=== PATIENT | female | born 1945 | race Caucasian/White ===

== ENCOUNTER → 2020-01-29 | Outpatient (CLI) | payer MEDICARE ==
--- NOTE | 2020-01-29 13:23 | MR ---
EXAMINATION TYPE: MR cervical spine wo/w con DATE OF EXAM: 01/29/2020 COMPARISON: Outside imaging of the cervical spine dated 11/27/2019 and thoracic spine dated 11/16/2019 HISTORY: Abnormal outside imaging TECHNIQUE: Multiplanar, multisequence images of the cervical spine were acquired utilizing 9 mL intravenous Gada vist gadolinium contrast. Diffusion weighted imaging was performed. FINDINGS: On outside imaging at the T1 level there is increased T2 signal with expansion and patchy e nhancement. Differential is an was myelitis, myelopathy, demyelination or intramedullary neoplasm con trast enhanced MRI of the cervical spine was recommended with attention to C7-T1. In comparison to th e cervical spine MRI of 11/27/2019 there is a similar area of abnormal signal in the lower cervical an d upper thoracic spinal cord that appears intradural intramedullary measuring 2.5 cm from C7 to the s uperior endplate of T2. This appears as edema as there is a central punctate focus of enhancement myla suring 0.4 x 0.5 x 0.5 cm on axial T1 fat-sat postcontrast image 18 and sagittal T1 postcontrast nonf at sat image 7. This appears stable from the prior exam at the outside institution dated 11/27/2019. T his is centrally located within the spinal cord. This does not appear to be present on the prior MRI of 12/11/2014. There is new grade 1 anterolisthesis of C7 on T1 from the prior 2015. 4 mm that is stable from the ou ide exam of 11/27/2019. Right thyroidectomy is incidentally seen. C2-C3: There is a small central disc herniation without spinal canal stenosis. Right-sided uncoverteb ral hypertrophy creates minimal right neural foraminal narrowing. Left neural foramen is patent and s desiree canal is patent. C3-C4: There is a small central disc herniation and disc osteophyte complex. Although minimal facet a rthropathy and uncovertebral hypertrophy are present no significant neural foraminal narrowing is see n. There is mild spinal canal stenosis as there is loss of the ventral subarachnoid space. C4-C5: There is a posterior projecting disc osteophyte complex and broad-based disc bulge with uncove rtebral hypertrophy and facet arthropathy creating mild right and moderate left neural foraminal narr owing and mild spinal canal stenosis. C5-C6: There is a left paracentral small disc herniation superimposed on a broad-based disc bulge. Th ere is effacement of the ventral subarachnoid space relating to mild spinal canal stenosis. No signif icant neural foraminal narrowing. C6-C7: There is uncovertebral hypertrophy and a broad-based disc bulge resulting in mild bilateral ne ural foraminal narrowing and mild spinal canal stenosis. C7-T1: There is disc uncovering from the known grade 1 anterolisthesis. Mild bilateral neural foramin al narrowing is seen. Moderate spinal canal stenosis is seen as result of a broad-based disc bulge an d ligamentum flavum buckling as well as facet arthropathy. Minimal uncovertebral hypertrophy is also seen.. IMPRESSION: 1. Stable abnormally enhancing 5 mm intradural, intra-axial spinal cord lesion at T1 with surrounding edema from C7-T2. Transverse myelitis or neoplasm/astrocytoma are primary diagnostic considerations given the central involvement. 2. Stable grade 1 anterolisthesis of C7 on T1 and moderate spinal canal stenosis at this level second lona to ligamentum flavum buckling, anterolisthesis and a broad-based disc bulge. 3. Small central disc herniations at C2-C3 and C3-C4 without spinal canal stenosis. Small left parace ntral disc herniation is also seen at C5-C6. 4. Overall moderate degenerative disc disease of the cervical spine resulting in variable degrees of neural foraminal narrowing and spinal canal stenosis as detailed above at each level.
== END | disposition home or self-care (01) ==
LOC: RADMRIMAIN 11:51
PROVIDERS: ATTEND Family Medicine
DX: M48.02 Spinal stenosis, cervical region (principal); M48.03 Spinal stenosis, cervicothoracic region; M50.21 Other cervical disc displacement, high cervical region; M50.23 Other cervical disc displacement, cervicothoracic region; M43.13 Spondylolisthesis, cervicothoracic region; M50.30 Other cervical disc degeneration, unspecified cervical region
CPT/HCPCS: 72156; A9585

== ENCOUNTER → 2020-02-06 | Outpatient (CLI) | payer MEDICARE ==
--- NOTE | 2020-02-09 06:51 | PE ---
EXAMINATION TYPE: PET CT fusion skull to thigh DATE OF EXAM: 02/06/2020 COMPARISON: MRI cervical spine January 29, 2020. HISTORY: History of breast cancer 2010 with abnormal MRI, new mass and swelling. TECHNIQUE: Following the intravenous administration of 11.91 mCi of F-18 FDG, whole body images are performed from the skull base to the midthigh. Images are reviewed on the computer in the coronal, a xial, and sagittal planes. Reconstructed rotating images are created on independent workstation and reviewed on the computer. A noncontrast CT is performed in conjunction with the PET scan. SCAN: Initial Scan FINDINGS: SKULL BASE AND NECK: Mild hypermetabolic uptake right anterior masseter muscle axial image 36 is pre sumed postinflammatory. No additional suspicious hypermetabolic uptake with particular attention to the lower cervical spinal canal. CHEST, MEDIASTINUM, AND HILAR REGION: No areas of suspicious hypermetabolic uptake. ABDOMEN AND PELVIS: No areas of suspicious hypermetabolic uptake. Normal excretion and bladder. OSSEOUS STRUCTURES: No areas of suspicious hypermetabolic uptake. OTHER CT: Moderate calcified plaque bilateral carotid bulb level. Right thyroid lobe not visualized p resumed surgically absent. Cardiomegaly is present. Surgical changes to the lateral aspect right breast are noted. There is mode rate to severe coronary artery calcification which is noted marker for underlying coronary artery dis ease. Metallic hardware from bilateral hip arthroplasty causes streak artifact limiting evaluation of pelvi c structures. Uterus may be surgically absent. IMPRESSION: No suspicious hypermetabolic uptake to suggest recurrent metastatic disease. PET may be i nsensitive to subcentimeter spinal cord lesions. Appropriate follow-up for this lesion is advised per neurosurgical and/or other consultations.
== END | disposition home or self-care (01) ==
LOC: RADPETMAIN 11:57
PROVIDERS: ATTEND Family Medicine
DX: G95.9 Disease of spinal cord, unspecified (principal)
CPT/HCPCS: 78815; A9552

== ENCOUNTER → 2020-04-15 | Outpatient (CLI) | payer MEDICARE ==
[2020-04-15 10:20] LABS: Appearance,Urine Clear (Clear); Basophils % (A) 0 %; Bilirubin,Urine Negative (Negative); Blood,Urine Negative (Negative); Color,Urine Light Yellow; Eosinophils # (A) 0.2 k/uL (0-0.7); Eosinophils % (A) 3 %; Glucose,Urine (UA) Negative (Negative); HCT 41.8 % (34.0-46.0); HGB 13.9 gm/dL (11.4-16.0); Ketones,Urine Negative (Negative); Leukocyte Esterase,Urine Negative (Negative); Lymphocytes % (A) 22 %; MCH 29.2 pg (25.0-35.0); MCHC 33.3 g/dL (31.0-37.0); MCV 87.7 fL (80.0-100.0); Mean Platelet Volume 8.8; Monocytes # (A) 0.5 k/uL (0-1.0); Monocytes % (A) 6 %; Neutrophils % (A) 66 %; Nitrite,Urine Negative (Negative); PH, Urine 7.5 (5.0-8.0); Platelet Count 295 k/uL (150-450); Protein,Urine Negative (Negative); RBC 4.77 m/uL (3.80-5.40); RDW 13.5 % (11.5-15.5); Specific Gravity,Urine 1.008 (1.001-1.035); Urobilinogen,Urine <2.0 mg/dL (<2.0); WBC 9.1 k/uL (3.8-10.6)
[2020-04-15 10:31] LABS: Calcium 9.2 mg/dL (8.4-10.2); Potassium 3.9 mmol/L (3.5-5.1)
[2020-04-15 10:42] LABS: INR 0.9 (<1.2); Partial Thromboplastin Time 24.8 sec (22.0-30.0); Prothrombin Time 9.6 sec (9.0-12.0)
--- NOTE | 2020-04-15 11:27 | XR ---
EXAMINATION TYPE: XR chest 2V DATE OF EXAM: 04/15/2020 COMPARISON: NONE HISTORY: Z01.818, presurgery TECHNIQUE: Frontal and lateral views of the chest are obtained. FINDINGS: There is no focal air space opacity, pleural effusion, or pneumothorax seen. The aorta is dense. The cardiac silhouette size is within normal limits. The osseous structures are intact, the re may be a slight spinal curvature. IMPRESSION: No acute cardiopulmonary process.
== END | disposition home or self-care (01) ==
LOC: LABPAT 09:23
PROVIDERS: ATTEND Orthopaedic Surgery Orthopaedic Surgery of the Spine
DX: Z01.818 Encounter for other preprocedural examination (principal); U07.1 COVID-19; M48.00 Spinal stenosis, site unspecified
CPT/HCPCS: 80048; 85025; 85610; 85730; 81003; 71046; 36415; U0003

== ENCOUNTER 2020-04-18 11:06 | Day surgery (SDC) | payer MEDICARE ==
[2020-04-15 09:10] VITALS: BMI 34.1
[~2020-04-18 11:06] MED LIST: DEXAMETHASONE SOD PHOSPHATE 10 MG/ML 1 ML VIAL IV ONE; HYDROmorphone 0.5 MG/0.5 ML SYRINGE IVP PRN; ONDANSETRON 4 MG/2 ML VIAL IVP ONE; SODIUM CHLORIDE 0.9% IRRIGATIO 1,000 ML IRRIGATION ONE
[2020-04-18] MEDS: LACTATED RINGERS 1,000 ML IV SCH (11:55)
[2020-04-18] MEDS ORDERED: LIDOCAINE 1% (10MG/ML) FOR IV START INTRADERMA ONE (11:55)
[2020-04-18] MEDS ORDERED: PROPOFOL 10 MG/ML 20 ML VIAL IV ONE (12:41)
[2020-04-18] MEDS ORDERED: fentaNYL (PF) 50 MCG/ML 2 ML AMP ONE (12:41)
[2020-04-18] MEDS ORDERED: MIDAZOLAM 2 MG/2 ML VIAL ONE (12:41)
[2020-04-18] MEDS ORDERED: ROCURONIUM BROMIDE 10 MG/ML 5 ML VIAL IV ONE (12:41)
[2020-04-18] MEDS ORDERED: SUCCINYLCHOLINE CHLORIDE 100 MG/5 ML SYR IV ONE (12:41)
[2020-04-18] MEDS ORDERED: DEXAMETHASONE SOD PHOS (MDV) 100 MG/10 ML VIAL ONE (12:41)
[2020-04-18] MEDS ORDERED: LIDOCAINE 1% INJ 10MG/ML (20 ML MDV) ONE (12:41)
[2020-04-18] MEDS ORDERED: LIDOCAINE 2%-EPI 1:100,000 20 ML VIAL SQ ONE ×3 (13:19→14:36)
--- NOTE | 2020-04-18 13:53 | XR ---
EXAMINATION TYPE: XR cervical spine 1V DATE OF EXAM: 04/18/2020 COMPARISON: NONE HISTORY: 74-year-old female needle placement TECHNIQUE: Single crosstable lateral intraoperative view FINDINGS: Patient's neck is extended. A surgical needle is present along the anterior C6-C7 disc interspace. Mo derate spondylotic change mid to lower cervical spine. Patient is intubated. IMPRESSION: Surgical needle at the anterior C6-C7 disc interspace.
[2020-04-18] MEDS ORDERED: GELATIN SPONGE,ABSORB (LARGE) 1 EACH SPONGE MISCELLANE ONE (14:05)
[2020-04-18] MEDS ORDERED: THROMBIN (BOVINE) 5,000 UNIT VIAL TOPICAL ONE (14:06)
[2020-04-18] MEDS ORDERED: LACTATED RINGERS 1,000 ML IV ONE (14:31)
[2020-04-18] MEDS ORDERED: HYDROmorphone 1 MG/ML 1 ML SYRINGE IVP PRN (14:46)
[2020-04-18] MEDS ORDERED: HYDROmorphone 0.5 MG/0.5 ML SYRINGE IVP PRN (14:46)
[2020-04-18] MEDS ORDERED: BENZOCAINE/MENTHOL LOZENG 1 EACH LOZENGE MUCOUS MEM PRN (14:46)
[2020-04-18] MEDS ORDERED: ONDANSETRON 4 MG/2 ML VIAL IVP PRN (14:47)
[2020-04-18] MEDS ORDERED: HYDROcodone/APAP 5-325MG 1 EACH TAB PO PRN (14:47)
[2020-04-18] MEDS ORDERED: ACETAMINOPHEN TAB 325 MG TAB PO PRN (14:47)
--- NOTE | 2020-04-18 14:54 | P.OP ---
Date of Procedure: 04/18/20 Preoperative Diagnosis: Cervical myelopathy, cervical myelomalacia, severe cervical stenosis C6 7 C7-T1, upper extremity weakness, lower extremity weakness, neck pain, upper extremity radiculopathy, degenerative disc disease Postoperative Diagnosis: Same Anesthesia: GETA Pathology: none sent Condition: stable Disposition: PACU Description of Procedure: BRIEF OPERATIVE NOTE Preoperative Diagnosis:Cervical myelopathy, cervical myelomalacia, severe cervical stenosis C6 7 C7-T1, upper extremity weakness, lower extremity weakness, neck pain, upper extremity radiculopathy, degenerative disc disease Postoperative Diagnosis:Cervical myelopathy, cervical myelomalacia, severe cervical stenosis C6 7 C7-T1, upper extremity weakness, lower extremity weakness , neck pain, upper extremity radiculopathy, degenerative disc disease Procedure: Anterior cervical decompression with discectomy and fusion C6 7 C7-T1 Placement of interbody graftC6 7 C7-T1 Application of anterior cervical plateC6 7 and T1 Surgeon: Dr. Roberto Appliance Sales Associate: Jona Ac is present throughout the entire the case persistence during positioning, dissection, exposure, visualization, and all crucial elements of the case as well as closure. Anesthesia: General anesthesia per Dr. Giles Estimated blood loss:Approximately 50 mL Complications: None apparent Components implanted:K2M [place] anterior cervical plate system with Vikos interbody allograft bone graft and 1 mL of DBX bone putty Disposition: To recovery room in good stable condition. OPERATIVE INDICATIONS The patient has had long-standing issues in their neck and upper extremities. she's been having worsening over the past couple of months. She was found have significant cervical myelopathy with severe stenosis at her cervical spine and myelomalacia within her cervical spine the correlated with her symptoms. Some of her treatment had to be delayed due to the current pandemic, but once we are able to proceed with surgical intervention we felt that she had significant time sensitive issues that should be addressed sooner rather than later. The patient has been through conservative treatment. We discussed various treatment options including surgery, and the patient wishes to proceed with surgery We discussed the risk, patient's alternatives and benefits of surgery including but not limited to, risk of bleeding risk of infection, risk of need for further surgery, risk of decreased, loss of motion, muscle function, malunion nonunion, hardware failure, nerve damage, paralysis, heart attack, and .We also discussed the fact that there is a current pandemic and there was no way to fully guarantee complete non-exposure and the patient understood. OPERATIVE SUMMARY After discussing all the risks, patient alternatives and benefits at length, the patient elected to proceed with surgical intervention, signed informed consent, and presented for their procedure. The patient was seen and examined in the preoperative holding area and the surgical site was marked. The patient was given antibiotics and brought to the operating room. The patient was positioned on the operating room table in a supine position being careful to pad any bony prominences and pressure points. The patient was sedated and intubated by anesthesia in standard fashion. Once the airway and C- spine were stabilized the patient's arms were padded and tucked at her side, with her shoulders gently taped. The head was placed in a donut pad with the neck in good neutral alignment and position. We were careful to maintain the patient's cervical spine and good neutral alignment and position throughout. The patient was prepped and draped in a normal standard fashion. An appropriate timeout and keystone protocol performed. We were able to proceed with the surgery. The local wound area was infiltrated with local anesthetic At the level of her prior incision from her thyroidectomy on the right side over C7.. An incision was made transversely approximately 2-1/2 cm over the appropriate levels At C7. Dissection was taken down subcutaneously to the level of the platysma which was split in line with its fibers. Dissection was taken with a carotid approach, with the trachea and esophagus medial and the carotid sheath laterally. We dissected down to the anterior surface of the vertebral bodies. Intraoperative x-ray was taken which showed a marker at the appropriate level At C6 7. the large osteophytes at C6 7 which were taken down with a rongeur. With the appropriate level positively confirmed, we were able to proceed with discectomy at the appropriate levels Starting at C7-T1 and then working to C6 7. All of the operative levels were exposed appropriately. The patient had all their twitches back, and there was no evidence of recurrent laryngeal issue. The wound was copiously irrigated and suctioned dry as had been done periodically throughout the case. At the appropriate level/levels,starting at C7-T1 and then moving to C6 7 I established an annulotomy with an 11 blade scalpel. A discectomy was performed with a combination of pituitary rongeurs, curettes, a high-speed bur, and Kerrison rongeurs. The posterior longitudinal ligament was taken down as were any posterior osteophytes. note was made of the listhesis at C7-T1 and evidence of severe central and bilateral foraminal stenosis at both levels. I was able to take down the disc and the posterior longitudinal ligament and open up the neural foramen bilaterally. This gave good central and bilateral foraminal decompression. There is no evidence of any dural tear or leak. The endplates were prepared with a high-speed bur. With the endplates in good parallel position, I was able to size for the appropriate size interbody graft. The wound was irrigated and suctioned dry the graft was prepared and malleted into position. It had good alignment and position with the anterior surface flush with the anterior surface of the vertebral bodies. This was done similarly the appropriate levels. With the grafts intact, I was able to measure and contour and appropriate sized plate. The plate was positioned at the midline over the appropriate levels From a C6 to T1. Screw holes were established with a hand drill and drill guide. Screws were placed in good alignment and position with excellent bony purchase. They were seated under the locking device. I was unable to get some reduction of the listhesis at C7-T1 to the plate. The construct was checked and found to be stable. Intraoperative x-ray was taken which showed good alignment and position of the implants at the appropriate levels From C6 to T1. There was no evidence of any dural tear or leak. Good hemostasis was maintained. The wound was copiously irrigated and suctioned dry as had been done periodically throughout the case. The platysma was closed with absorbable suture. The subcutaneous tissue was closed. The subcuticular tissue was closed with absorbable suture. The wound was cleaned and dried and dressed appropriately. A soft cervical collar was placed appropriately. The patient was woken up by anesthesia, extubated, transferred back gently to their hospital bed and brought to the recovery room in good stable condition. The patient will be admitted to the hospital for appropriate postoperative care, medical management and monitoring. We will continue to follow them closely about the postoperative course.
--- NOTE | 2020-04-18 14:56 | XR ---
EXAMINATION TYPE: XR cervical spine 1V DATE OF EXAM: 04/18/2020 COMPARISON: NONE HISTORY: Postop TECHNIQUE: One view is submitted. FINDINGS: Postsurgical change lower cervical spine likely partially included on exam. Suggestion of an endotrac heal tube. Severe degenerative disc disease at C4-5 with posterior spondylosis. Multilevel facet arth ropathy noted. IMPRESSION: 1. Postoperative change
[2020-04-18] MEDS ORDERED: CHOLECALCIFEROL 1,000 UNIT TAB PO SCH (15:00)
[2020-04-18] MEDS ORDERED: HYDROmorphone 0.5 MG/0.5 ML SYRINGE IVP ONE ×2 (15:34→15:40)
[2020-04-18] MEDS: SODIUM CHLORIDE 0.9% 1,000 ML IV SCH (18:06)
[2020-04-18] MEDS: HYDROcodone/APAP 7.5-325MG 1 EACH TAB PO PRN (20:44)
[2020-04-19] MEDS: HYDROcodone/APAP 7.5-325MG 1 EACH TAB PO PRN (04:23)
[2020-04-19] MEDS: LACTATED RINGERS 1,000 ML IV SCH (04:31)
[2020-04-19] MEDS: SODIUM CHLORIDE 0.9% 1,000 ML IV SCH (04:31)
[2020-04-19] MEDS ORDERED: NON FORMULARY DRUG (Potassium Gluconate [Potassium Gluconate] 99 MG) PO SCH (09:00)
[2020-04-19] MEDS ORDERED: PANTOPRAZOLE 40 MG TABLET PO SCH (09:00)
[2020-04-19] MEDS ORDERED: ESCITALOPRAM 5 MG TAB PO SCH (09:00)
[2020-04-19] MEDS ORDERED: TRIAMTERENE-HCTZ 75-50MG 1 EACH TAB PO SCH (09:00)
[2020-04-19] MEDS ORDERED: MAGNESIUM OXIDE 400 MG TAB PO SCH (09:00)
[2020-04-19] MEDS ORDERED: ASPIRIN 81 MG PO SCH (09:00)
[2020-04-19] MEDS ORDERED: ATENOLOL 50 MG TAB PO SCH (09:00)
[2020-04-19] MEDS ORDERED: SENNOSIDES-DOCUSATE SODIUM 1 EACH TAB PO SCH ×2 (09:00)
--- NOTE | 2020-04-19 10:50 | P.DS ---
Providers Date of admission: 04/18/2020 Expected date of discharge: 04/19/20 Attending physician: Chaim Roberto Primary care physician: Melvina Phillips - Discharge Diagnosis(es) (1) Cervical myelopathy Current Visit: Yes Status: Acute (2) Cervical cord myelomalacia Current Visit: Yes Status: Acute (3) Cervical stenosis of spinal canal Current Visit: Yes Status: Acute (4) Degenerative cervical disc Current Visit: Yes Status: Acute (5) Upper extremity weakness Current Visit: Yes Status: Acute (6) Radiculopathy affecting upper extremity Current Visit: Yes Status: Acute (7) Lower extremity weakness Current Visit: Yes Status: Acute (8) Cervicalgia Current Visit: Yes Status: Acute (9) Hypertension Current Visit: Yes Status: Acute (10) History of heart disease Current Visit: Yes Status: Acute (11) History of breast cancer Current Visit: Yes Status: Acute (12) Unsteady gait Current Visit: Yes Status: Acute Hospital Course: This is a pleasant 74-year-old female who presented with cervical myelopathy, cervical myelomalacia, severe cervical stenosis at C6-7 and C7-T1, upper extremity weakness, lower extremity weakness, cervicalgia, cervical degenerative disc disease, and upper extremity radiculopathy who failed outpatient conservative therapy. She was admitted for a C6-7 and C7-T1 anterior cervical decompression and fusion. The patient tolerated the procedure well and did well postoperatively. She has good range of motion of bilateral upper extremities. She feels her upper extremity radiculopathy symptoms and lower extremity symptoms have improved. She does continue to have some pain that radiates down the right tricep to the elbow. She has some soreness with swallowing but is eating and drinking without difficulty. She is very happy with her progress postoperatively. She feels she is ready for discharge home today. Condition on day of discharge stable. Patient will be discharged home. Patient was cleared preoperatively for surgery by Dr. Phillips. Patient currently denies any nausea, vomiting, fever, or chills. Patient is eating and voiding freely without difficulty. Patient may shower Optifoam dressing intact. Patient may remove Optifoam dressing in 3 days and shower without a dressing at that time. Patient should refrain from driving until at least after their first follow-up appointment in the office. Patient should avoid excessive neck flexion, extension, rotation, and lateral sidebending; no overhead lifting; no lifting greater than 10 pounds. MAPS has been reviewed today, 04/19/2020, with an Overall Overdose Risk Score of 70. An "Opiod Start Talking" Form has been signed by the patient and myself in place in the patient's chart. A prescription has been written for [place] 7.5 mg/325 mg take 1 tab every 6 hours as needed for pain, dispensed #28. Patient may resume other previous he prescribed home medications while avoiding anti-inflammatories over the next 6 weeks postoperatively. Patient's past medical history includes hypertension, heart disease, unsteady gait, and breast cancer. Physical Exam on day of discharge: Patient is awake, alert, and oriented 3 Vital signs stable Good chest excursion with deep inspiration and expiration Abdomen soft nontender No signs or symptoms of DVT; no calf pain Full range of motion of the cervical spine with adequate flexion, extension, and bilateral rotation Clinical Molecular Geneticist strength, thumb strength, interosseous strength, biceps strength, triceps strength, and shoulder strength positive sustained bilaterally Soft cervical collar intact Incision is clean, dry, and intact; no erythema, purulence, or signs of infection Optifoam dressing and non-stick Telfa intact Procedures: C6-7 and C7-T1 anterior cervical decompression and fusion Patient Condition at Discharge: Stable Plan - Discharge Summary Discharge Rx Participant: Yes New Discharge Prescriptions: New HYDROcodone/APAP 7.5-325MG [[place] 7.5-325] 1 each PO Q6HR PRN #28 tab PRN Reason: Pain Continue HYDROcodone/APAP 7.5-325MG [[place] 7.5-325] 1 - 2 tab PO Q6HR PRN PRN Reason: Pain rOPINIRole HCL [Requip] 0.5 mg PO HS Magnesium Oxide [Mag-Ox] 1,000 mg PO DAILY Escitalopram [Lexapro] 5 mg PO DAILY Atenolol [Tenormin] 50 mg PO DAILY Aspirin 81 mg PO DAILY Triamterene/Hydrochlorothiazid [Triamterene-Hctz 75-50 mg Tab] 1 each PO DAILY Potassium Gluconate 99 mg PO DAILY Omeprazole 20 mg PO DAILY Cholecalciferol (Vitamin D3) [Vitamin D3] 1,000 unit PO Q48H Discharge Medication List Aspirin 81 mg PO DAILY 04/15/20 [History] Atenolol [Tenormin] 50 mg PO DAILY 04/15/20 [History] Escitalopram [Lexapro] 5 mg PO DAILY 04/15/20 [History] HYDROcodone/APAP 7.5-325MG [[place] 7.5-325] 1 - 2 tab PO Q6HR PRN 04/15/20 [History] Magnesium Oxide [Mag-Ox] 1,000 mg PO DAILY 04/15/20 [History] Omeprazole 20 mg PO DAILY 04/15/20 [History] Potassium Gluconate 99 mg PO DAILY 04/15/20 [History] Triamterene/Hydrochlorothiazid [Triamterene-Hctz 75-50 mg Tab] 1 each PO DAILY 04/15/20 [History] rOPINIRole HCL [Requip] 0.5 mg PO HS 04/15/20 [History] Cholecalciferol (Vitamin D3) [Vitamin D3] 1,000 unit PO Q48H 04/18/20 [History] HYDROcodone/APAP 7.5-325MG [[place] 7.5-325] 1 each PO Q6HR PRN #28 tab 04/19/20 [Rx] Follow up Appointment(s)/Referral(s): Chaim Roberto, [Doctor of Osteopathic Medicine] - 2 Weeks (Patient may follow-up with Jona Traore PA-C or Dr. Kevin Roberto at [facility] in 2-3 weeks following discharge. ) Activity/Diet/Wound Care/Special Instructions: 1. Patient may shower with Optifoam dressing intact. 2. Patient may remove Optifoam dressing in 3 days and shower without a dressing at that time. 3. Patient may wear soft cervical collar for comfort support as needed 4. Patient should refrain from driving until at least after their first follow- up appointment in the office. 5. Patient should avoid excessive cervical flexion, extension, rotation, and sidebending; avoid overhead lifting; no lifting greater than 10 pounds 6. Take medications as prescribed 7. Do not soak in tub Discharge Disposition: HOME SELF-CARE
[2020-04-19 11:44] VITALS: BP 156/84; PULSE 67; RESP 18; TEMP 98
== END 2020-04-19 12:16 | disposition home or self-care (01) ==
LOC: OR 11:06 → 5NMEDONC 15:26 → OR 04-19 12:16
PROVIDERS: ATTEND Orthopaedic Surgery Orthopaedic Surgery of the Spine
DX: M48.02 Spinal stenosis, cervical region (principal); M50.023 Cervical disc disorder at C6-C7 level with myelopathy; M50.123 Cervical disc disorder at C6-C7 level with radiculopathy; G95.89 Other specified diseases of spinal cord; M43.12 Spondylolisthesis, cervical region; M47.896 Other spondylosis, lumbar region; M51.17 Intervertebral disc disorders with radiculopathy, lumbosacral region; I11.9 Hypertensive heart disease without heart failure; R26.81 Unsteadiness on feet; R29.6 Repeated falls; K21.9 Gastro-esophageal reflux disease without esophagitis; E89.0 Postprocedural hypothyroidism; Z88.6 Allergy status to analgesic agent; Z88.8 Allergy status to other drugs, medicaments and biological substances; Z91.09 Other allergy status, other than to drugs and biological substances; Z79.899 Other long term (current) drug therapy; Z79.82 Long term (current) use of aspirin; Z79.891 Long term (current) use of opiate analgesic; Z85.3 Personal history of malignant neoplasm of breast; Z96.643 Presence of artificial hip joint, bilateral; Z90.710 Acquired absence of both cervix and uterus; Z90.89 Acquired absence of other organs; Z98.890 Other specified postprocedural states; Z87.891 Personal history of nicotine dependence; Z83.3 Family history of diabetes mellitus; Z82.49 Family history of ischemic heart disease and other diseases of the circulatory system
CPT/HCPCS: 22551; 20930; 22552; 22845; 86900; 86901; 86850; 72020; C1713 ×2; C1762; J2250; J0690 ×2; J2405; J2001; J3010; J1100; J0330; J2704; J1170

== ENCOUNTER → 2020-11-01 | Outpatient (CLI) | payer MEDICARE | END | disposition home or self-care (01) | LOC: LABPAT 12:42 | PROVIDERS: ATTEND Surgery | DX: Z01.818 Encounter for other preprocedural examination (principal); Z20.828 Contact with and (suspected) exposure to other viral communicable diseases ==

== ENCOUNTER 2024-02-04 06:43 | Day surgery (SDC) | payer MEDICARE ==
[~2024-02-04 06:43] MED LIST changes: +ALPRAZolam 0.25 MG TAB PO PRN; +ALPRAZolam 0.5 MG TAB PO PRN; -DEXAMETHASONE SOD PHOSPHATE 10 MG/ML 1 ML VIAL IV ONE; -HYDROmorphone 0.5 MG/0.5 ML SYRINGE IVP PRN; +NITROGLYCERIN SL TABS 0.4 MG TAB SUBLINGUAL PRN; -ONDANSETRON 4 MG/2 ML VIAL IVP ONE; -SODIUM CHLORIDE 0.9% IRRIGATIO 1,000 ML IRRIGATION ONE
[2024-02-04] MEDS: SODIUM CHLORIDE 0.9% 1,000 ML in EMPTY BAG 1 BAG IV SCH (07:25)
[2024-02-04 07:50] VITALS: TEMP 97.9
[2024-02-04] MEDS ORDERED: VERAPAMIL 2.5 MG/ML 2 ML AMP ONE (08:17)
[2024-02-04] MEDS ORDERED: HEPARIN SODIUM 1,000 UN/ML (10ML VL) ONE (08:17)
[2024-02-04] MEDS ORDERED: LIDOCAINE 1% INJ 10MG/ML (20 ML MDV) ONE (08:18)
[2024-02-04] MEDS: MIDAZOLAM 2 MG/2 ML VIAL IVP ONE ×2 (08:32→08:44)
[2024-02-04] MEDS: LIDOCAINE 1% INJ 10MG/ML (20 ML MDV) SQ ONE (08:37)
[2024-02-04] MEDS: VERAPAMIL SYRINGE (5 MG/10 ML) INTRAARTER ONE (08:38)
[2024-02-04] MEDS: HEPARIN SODIUM 1,000 UN/ML (10ML VL) IVP ONE (08:40)
[2024-02-04] MEDS: IOPAMIDOL-370 100ML BTL INTRATHECA ONE (08:50)
[2024-02-04] MEDS ORDERED: ACETAMINOPHEN TAB 325 MG TAB ONE (09:06)
[2024-02-04] MEDS ORDERED: ACETAMINOPHEN TAB 325 MG TAB PO PRN (09:11)
[2024-02-04 13:42] VITALS: BP 131/58; PULSE 62; RESP 16
--- NOTE | 2024-02-18 14:44 | PCN ---
Date of Procedure: 02/04/24 Operative Findings: CARDIAC CATHETERIZATION PERFORMING PHYSICIAN: Dudley Martinez MD, RPVI PROCEDURE PERFORMED: 1. Selective right and left coronary angiogram 2. Ultrasound-guided access of the right radial artery INDICATION: Symptomatic 75-year-old female patient who underwent stress test and that came in to be abnormal showing ischemia COMPLICATION: None APPROACH: Right radial artery LEVEL OF SEDATION: Moderate with a sedation length of 12 minutes PROCEDURE DESCRIPTION: After obtaining an informed consent, the patient was brought to cardiac slab puller. Local anesthesia was performed using lidocaine subcutaneously. The right radial artery was cannulated using Seldinger technique, the guidewire passed easily, following that we advanced a 5-[place] sheath dilator assembly, the wire and dilator were removed and sheath was flushed. Following that, 2 mg of verapamil along with 5000 unit heparin were given. Selective right and left coronary angiogram using a 6-[place] JR4 and JL 3.5 catheters. The procedure was completed there was no complication. SELECTIVE CORONARY ANGIOGRAM: The right coronary artery: Large-caliber vessel and a dominant vessel with mild disease only Left main: Calcified with mild disease only The left circumflex: Large-caliber vessel and codominant vessel with mild disease only. Gives rise into the first and second obtuse marginal branches and they are normal. Distally gives a PDA which also appears to be normal The left anterior descending artery: Large-caliber vessel with mild disease only. Gives rise into the first and second diagonal branches and they appear to be normal CONCLUSION: 1. Mild nonobstructive coronary artery disease POSTPROCEDURE MANAGEMENT: Medical treatment MTDD
== END 2024-02-04 14:00 | disposition home or self-care (01) ==
LOC: CATHCVL 06:43
PROVIDERS: ATTEND Internal Medicine Interventional Cardiology
DX: I73.9 Peripheral vascular disease, unspecified (principal); I10 Essential (primary) hypertension; E78.5 Hyperlipidemia, unspecified; F17.210 Nicotine dependence, cigarettes, uncomplicated; Z88.5 Allergy status to narcotic agent; Z79.899 Other long term (current) drug therapy
CPT/HCPCS: 93454; 76937; C1769; C1894; J2250; J2001; J1644; Q9967

== ENCOUNTER 2024-09-26 09:39 | Inpatient (IN) | payer MEDICARE ==
--- NOTE | 2024-09-26 10:45 | ED ---
Nausea/Vomiting/Diarrhea HPI - General Chief complaint: Nausea/Vomiting/Diarrhea Stated complaint: N/V/D Time Seen by Provider: 09/26/24 10:43 Source: patient, RN notes reviewed Mode of arrival: EMS Limitations: no limitations - History of Present Illness Initial comments: 79 year old female presenting to the ER with a chief complaint of vomiting and diarrhea. Daughter aiding in HPI. Patient states she has been having vomiting, diarrhea, fevers and abdominal pain for the past 24 hours. Daughter reports a fever of 102 yesterday for which she gave Tylenol. Last dose of Tylenol was around 7:15 AM. Patient states he has a sharp right sided abdominal pain. She does report a history of a cholecystectomy. Daughter reports patient also has had a recent cough and complaints of shortness of breath. Patient denies any chest pain or current shortness of breath. - Related Data Home Medications Medication Instructions Recorded Confirmed Aspirin 81 mg PO DAILY 04/15/20 09/26/24 Triamterene/Hydrochlorothiazid 1 tab PO DAILY 04/15/20 09/26/24 [Triamterene-Hctz 75-50 mg Tab] Exemestane [Aromasin] 25 mg PO DAILY 01/29/24 09/26/24 Furosemide [Lasix] 40 mg PO DAILY PRN 01/29/24 09/26/24 HYDROcodone/APAP 10-325MG [[place] 1 tab PO Q4H PRN 01/29/24 09/26/24 10-325] Lactulose [Constulose] 10 - 20 gm PO Q6H PRN 01/29/24 09/26/24 allopurinoL 100 mg PO DAILY 01/29/24 09/26/24 methocarbamoL 750 mg PO Q6H PRN 01/29/24 09/26/24 Cholecalciferol [Vitamin D3 (25 25 mcg PO DAILY 09/26/24 09/26/24 Mcg = 1000 Iu)] Escitalopram [Lexapro] 10 mg PO DAILY 09/26/24 09/26/24 Furosemide [Lasix] 40 mg PO DAILY 09/26/24 09/26/24 Letrozole 2.5 mg PO DAILY 09/26/24 09/26/24 Magnesium 250 mg PO DAILY 09/26/24 09/26/24 Potassium Chloride ER [K-Dur 20] 20 meq PO DAILY 09/26/24 09/26/24 Allergies Allergy/AdvReac Type Severity Reaction Status Date / Time celecoxib [From Celebrex] Allergy Abdominal Verified 09/26/24 13:28 Pain ibuprofen [From Motrin] Allergy Abdominal Verified 09/26/24 13:28 Pain metoprolol Allergy Rash/Hives Verified 09/26/24 13:28 quinapril [From Accupril] Allergy Rash/Hives Verified 09/26/24 13:28 Kvspotr-BNP-DpM Reductase Allergy Abdominal Verified 09/26/24 13:28 Inhibitor Pain [Rvnqisr-Uqq-Ecu Reductase Inhibitor] adhesive tape AdvReac Rash/Hives Verified 09/26/24 13:28 Review of Systems ROS Statement: Those systems with pertinent positive or pertinent negative responses have been documented in the HPI. ROS Other: All systems not noted in ROS Statement are negative. Past Medical History Past Medical History: Cancer, GERD/Reflux, Hyperlipidemia, Hypertension, Osteoarthritis (OA) Additional Past Medical History / Comment(s): fluid retention ankles & feet, rheumatic fever/rheumatic heart disease x3 as a child, valve disease/heart murmur, hx. R breast cancer 2011-radiation & surgery, L breast cancer 2021/lumpectomy, pain & frequent numbness from small of back down legs-uses walker History of Any Multi-Drug Resistant Organisms: None Reported Past Surgical History: Breast Surgery, Hysterectomy, Joint Replacement, Orthopedic Surgery Additional Past Surgical History / Comment(s): lumpectomy right breast x2, L breast lumpectomy, surg. left knee to remove cartilage, partial thyroidectomy, TOTAL HIP REPLACEMENT LEFT AND RIGHT SIDE, bilateral cataract removal/lens impla nts. Past Anesthesia/Blood Transfusion Reactions: No Reported Reaction Past Psychological History: Anxiety, Depression Smoking Status: Former smoker Past Alcohol Use History: None Reported Past Drug Use History: None Reported - Past Family History Mother Son(s) Family Medical History: Cancer Daughter(s) Family Medical History: Cancer, Deep Vein Thrombosis (DVT) Additional Family Medical History / Comment(s): blood clot in arm, leukemia General Exam Limitations: no limitations General appearance: alert, in no apparent distress Respiratory exam: Present: normal lung sounds bilaterally. Absent: respiratory distress, wheezes, rales, rhonchi, stridor Cardiovascular Exam: Present: regular rate, normal rhythm, normal heart sounds. Absent: systolic murmur, diastolic murmur, rubs, gallop, clicks GI/Abdominal exam: Present: soft, tenderness (Right sided, LUQ), normal bowel sounds Back exam: Present: normal inspection (no CVA tenderness bilaterally) Neurological exam: Present: alert, oriented X3, CN II-XII intact Skin exam: Present: warm, dry, intact, normal color. Absent: rash Course Vital Signs 09/26/24 09/26/24 09:59 12:58 Temperature 99.6 F 98.9 F Pulse Rate 84 83 Respiratory 20 18 Rate Blood Pressure 115/68 93/51 O2 Sat by Pulse 98 94 L Oximetry - Reevaluation(s) Reevaluation #1: 09/26/24 14:17 Case discussed with for admission. Medical Decision Making - Medical Decision Making Was pt. sent in by a medical professional or institution (, PA, VERIFICATION ENGINEER, urgent care, hospital, or residential...) When possible be specific @ -No Did you speak to anyone other than the patient for history (EMS, parent, family, police, friend...)? What history was obtained from this source @ -Daughter, at bedside, aiding in HPI and past medical history. Did you review nursing and triage notes (agree or disagree)? Why? @ -I reviewed and agree with nursing and triage notes Were old charts reviewed (outside hosp., previous admission, EMS record, old EKG, old radiological studies, urgent care reports/EKG's, residential records)? Report findings @ -No old charts were reviewed Differential Diagnosis (chest pain, altered mental status, abdominal pain women, abdominal pain men, vaginal bleeding, weakness, fever, dyspnea, syncope, headache, dizziness, GI bleed, back pain, seizure, CVA, palpatations, mental health, musculoskeletal)? @ -Differential Fever:Pneumonia, viral URI, endocarditis, myocarditis, pericarditis, otitis, sinusitis, peritonsillar Abscess, retropharyngeal Abscess, epiglottitis, peritonitis, appendicitis, [place] cystitis, diverticulitis, hepat itis, colitis, UTI, PID, TOA, pyelonephritis, prostatitis, epididymitis, meningitis, encephalitis, pulmonary embolism, CVA, thyroid storm, pancreatitis, adrenal crisis, cavernous sinus thrombosis, this is not meant to be an all- inclusive list. EKG interpreted by me (3pts min.). @ -None done X-rays interpreted by me (1pt min.). @ -Chest x-ray negative for acute cardiopulmonary process. CT interpreted by me (1pt min.). @ -CT abdomen pelvis negative for acute intra-abdominal process. U/S interpreted by me (1pt. min.). @ -None done What testing was considered but not performed or refused? (CT, X-rays, U/S, labs)? Why? @ -None What meds were considered but not given or refused? Why? @ -None Did you discuss the management of the patient with other professionals (professionals i.e. Dr., PA, VERIFICATION ENGINEER, lab, RT, psych nurse, social worker health services, customer advisor specialist, teacher, conservation enforcement officer, top case assembler)? Give summary @ -Yes, case discussed with for admission. Was smoking cessation discussed for >3mins.? @ -No Was critical care preformed (if so, how long)? @ -No Were there social determinants of health that impacted care today? How? (Homelessness, low income, unemployed, alcoholism, drug addiction, transportation, low edu. Level, literacy, decrease access to med. care, prison, rehab)? @ -No Was there de-escalation of care discussed even if they declined (Discuss DNR or withdrawal of care, Hospice)? DNR status @ -No What co-morbidities impacted this encounter? (DM, HTN, Smoking, COPD, CAD, Cancer, CVA, ARF, Chemo, Hep., AIDS, mental health diagnosis, sleep apnea, morbid obesity)? @ -Kidney disease, hypertension Was patient admitted / discharged? Hospital course, mention meds given and route, prescriptions, significant lab abnormalities, going to OR and other pertinent info. @ -Admitted. 79-year-old female presented to the ER with a chief complaint of nausea, vomiting and fevers x 2 days. History and physical exam completed. Patient originally seen by myself as a quick note, laboratory studies ordered at that time. Vitals upon arrival stable. Patient in no signs of acute distress. The patient did have remarkable for leukocytosis of 22.3 with a left shift. Hy ponatremia at 134, hypokalemia at 3, chloride 97. CKD with a BUN of 38, creatinine 1.3, GFR 40). This appears to be at patient's baseline. Urinalysis concerning of infection with large leukocyte esterases, positive nitrates and 35 WBCs. Urine sent for culture. Viral swabs negative. Chest x-ray negative. CT abdomen pelvis negative. Patient started on Rocephin. Blood cultures obtained. Patient given PO potassium in ER. Hypokalemia believed to be due to diuretic use. Admission considered and discussed with Dr. Manriquez for further treatment of UTI and hypokalemia. Patient agreeable for admission. Patient in stable condition. Case discussed with the attending by Dr. Higgins. Undiagnosed new problem with uncertain prognosis? @ -No Drug Therapy requiring intensive monitoring for toxicity (Heparin, Nitro, Insulin, Cardizem)? @ -No Were any procedures done? @ -No Diagnosis/symptom? @ -UTI/leukocytosis/hypokalemia Acute, or Chronic, or Acute on Chronic? @ -Acute Uncomplicated (without systemic symptoms) or Complicated (systemic symptoms)? @ -Complicated Side effects of treatment? @ -No Exacerbation, Progression, or Severe Exacerbation? @ -No Poses a threat to life or bodily function? How? (Chest pain, [place], [place], pneumonia, PE, COPD, DKA, ARF, appy, cholecystitis, CVA, Diverticulitis, Homicidal, Suicidal, threat to staff... and all critical care pts) @ -Yes, UTI can lead to sepsis and endorgan dysfunction. - Lab Data Result diagrams: 09/26/24 12:36 09/26/24 12:36 Lab Results 09/26/24 09/26/24 09/26/24 Range/Units 12:36 12:36 12:36 WBC 22.3 H (3.8-10.6) k/uL RBC 4.56 (3.80-5.40) m/uL Hgb 13.0 (11.4-16.0) gm/dL Hct 40.3 (34.0-46.0) % MCV 88.4 (80.0-100.0) fL MCH 28.5 (25.0-35.0) pg MCHC 32.3 (31.0-37.0) g/dL RDW 14.1 (11.5-15.5) % Plt Count 275 (150-450) k/uL MPV 8.6 Neutrophils % 92 % Lymphocytes % 3 % Monocytes % 3 % Eosinophils % 0 % Basophils % 0 % Neutrophils # 20.6 H (1.3-7.7) k/uL Lymphocytes # 0.6 L (1.0-4.8) k/uL Monocytes # 0.8 (0-1.0) k/uL Eosinophils # 0.1 (0-0.7) k/uL Basophils # 0.0 (0-0.2) k/uL Sodium 134 L (137-145) mmol/L Potassium 3.0 L (3.5-5.1) mmol/L Chloride 97 L (98-107) mmol/L Carbon Dioxide 28 (22-30) mmol/L Anion Gap 9 mmol/L BUN 38 H (7-17) mg/dL Creatinine 1.30 H (0.52-1.04) mg/dL Est GFR (CKD-EPI)AfAm 46 (>60 ml/min/1.73 sqM) Est GFR (CKD-EPI)NonAf 40 (>60 ml/min/1.73 sqM) Glucose 134 H (74-99) mg/dL Plasma Lactic Acid [place] 1.0 (0.7-2.0) mmol/L Calcium 8.9 (8.4-10.2) mg/dL Total Bilirubin 0.7 (0.2-1.3) mg/dL AST 65 H (14-36) U/L ALT 50 H (4-34) U/L Alkaline Phosphatase 101 (38-126) U/L Total Protein 6.8 (6.3-8.2) g/dL Albumin 4.0 (3.5-5.0) g/dL Amylase 48 (30-110) U/L Lipase 53 (23-300) U/L Urine Color Urine Appearance (Clear) Urine pH (5.0-8.0) Ur Specific [place] (1.001-1.035) Urine Protein (Negative) Urine Glucose (UA) (Negative) Urine Ketones (Negative) Urine Blood (Negative) Urine Nitrite (Negative) Urine Bilirubin (Negative) Urine Urobilinogen (<2.0) mg/dL Ur Leukocyte Esterase (Negative) Urine RBC (0-5) /hpf Urine WBC (0-5) /hpf Urine Bacteria (None) /hpf Influenza Type A (PCR) (Not Detectd) Influenza Type B (PCR) (Not Detectd) RSV (PCR) (Not Detectd) SARS-CoV-2 (PCR) (Not Detectd) 09/26/24 09/26/24 Range/Units 12:36 12:43 WBC (3.8-10.6) k/uL RBC (3.80-5.40) m/uL Hgb (11.4-16.0) gm/dL Hct (34.0-46.0) % MCV (80.0-100.0) fL MCH (25.0-35.0) pg MCHC (31.0-37.0) g/dL RDW (11.5-15.5) % Plt Count (150-450) k/uL MPV Neutrophils % % Lymphocytes % % Monocytes % % Eosinophils % % Basophils % % Neutrophils # (1.3-7.7) k/uL Lymphocytes # (1.0-4.8) k/uL Monocytes # (0-1.0) k/uL Eosinophils # (0-0.7) k/uL Basophils # (0-0.2) k/uL Sodium (137-145) mmol/L Potassium (3.5-5.1) mmol/L Chloride (98-107) mmol/L Carbon Dioxide (22-30) mmol/L Anion Gap mmol/L BUN (7-17) mg/dL Creatinine (0.52-1.04) mg/dL Est GFR (CKD-EPI)AfAm (>60 ml/min/1.73 sqM) Est GFR (CKD-EPI)NonAf (>60 ml/min/1.73 sqM) Glucose (74-99) mg/dL Plasma Lactic Acid [place] (0.7-2.0) mmol/L Calcium (8.4-10.2) mg/dL Total Bilirubin (0.2-1.3) mg/dL AST (14-36) U/L ALT (4-34) U/L Alkaline Phosphatase (38-126) U/L Total Protein (6.3-8.2) g/dL Albumin (3.5-5.0) g/dL Amylase (30-110) U/L Lipase (23-300) U/L Urine Color Colorless Urine Appearance Cloudy H (Clear) Urine pH 6.0 (5.0-8.0) Ur Specific [place] 1.012 (1.001-1.035) Urine Protein 1+ H (Negative) Urine Glucose (UA) Negative (Negative) Urine Ketones Negative (Negative) Urine Blood Small H (Negative) Urine Nitrite Positive H (Negative) Urine Bilirubin Negative (Negative) Urine Urobilinogen <2.0 (<2.0) mg/dL Ur Leukocyte Esterase Large H (Negative) Urine RBC 2 (0-5) /hpf Urine WBC 35 H (0-5) /hpf Urine Bacteria Rare H (None) /hpf Influenza Type A (PCR) Not Detected (Not Detectd) Influenza Type B (PCR) Not Detected (Not Detectd) RSV (PCR) Not Detected (Not Detectd) SARS-CoV-2 (PCR) Not Detected (Not Detectd) - Radiology Data Radiology results: report reviewed, image reviewed Disposition Clinical Impression: UTI (urinary tract infection), Hypokalemia, Leukocytosis Disposition: ADMITTED IP TO THIS HOSP Condition: Stable Referrals: Melvina Phillips MD [Primary Care Provider] - 1-2 days Time of Disposition: 14:17
[2024-09-26 12:48] LABS: Basophils % (A) 0 %; Eosinophils # (A) 0.1 k/uL (0-0.7); Eosinophils % (A) 0 %; HCT 40.3 % (34.0-46.0); Lymphocytes # (A) 0.6 k/uL (1.0-4.8); Lymphocytes % (A) 3 %; MCH 28.5 pg (25.0-35.0); MCHC 32.3 g/dL (31.0-37.0); MCV 88.4 fL (80.0-100.0); Mean Platelet Volume 8.6; Monocytes # (A) 0.8 k/uL (0-1.0); Monocytes % (A) 3 %; Neutrophils # (A) 20.6 k/uL (1.3-7.7); Neutrophils % (A) 92 %; Platelet Count 275 k/uL (150-450); RBC 4.56 m/uL (3.80-5.40); RDW 14.1 % (11.5-15.5); WBC 22.3 k/uL (3.8-10.6)
[2024-09-26 12:58] LABS: Appearance,Urine Cloudy (Clear); Bacteria,Urine Rare /hpf; Bilirubin,Urine Negative (Negative); Blood,Urine Small (Negative); Color,Urine Colorless; Glucose,Urine (UA) Negative (Negative); Ketones,Urine Negative (Negative); Leukocyte Esterase,Urine Large (Negative); Nitrite,Urine Positive (Negative); Protein,Urine 1+ (Negative); RBC,Urine 2 /hpf (0-5); Specific Gravity,Urine 1.012 (1.001-1.035); Urobilinogen,Urine <2.0 mg/dL (<2.0); WBC,Urine 35 /hpf (0-5)
[2024-09-26 13:01] LABS: ALT 50 U/L (4-34); AST 65 U/L (14-36); African American GFR (CKD) 46 (>60 ml/min/1.73 sqM); Alkaline Phosphatase 101 U/L (38-126); Amylase 48 U/L (30-110); Anion Gap 9 mmol/L; Blood Urea Nitrogen 38 mg/dL (7-17); Calcium 8.9 mg/dL (8.4-10.2); Carbon Dioxide 28 mmol/L (22-30); Chloride 97 mmol/L (98-107); Glucose 134 mg/dL (74-99); Lipase 53 U/L (23-300); Non-African American GFR(CKD) 40 (>60 ml/min/1.73 sqM); Sodium 134 mmol/L (137-145); Total Bilirubin 0.7 mg/dL (0.2-1.3); Total Protein 6.8 g/dL (6.3-8.2)
[2024-09-26] MEDS: SODIUM CHLORIDE 0.9% 1,000 ML IV STA (13:01)
--- NOTE | 2024-09-26 13:52 | XR ---
EXAMINATION TYPE: XR chest 2V DATE OF EXAM: 09/26/2024 COMPARISON: 04/15/2020 HISTORY: TECHNIQUE: Frontal and lateral views of the chest are obtained. FINDINGS: There is no focal air space opacity, pleural effusion, or pneumothorax seen. The cardiac silhouette size is within normal limits. There are postsurgical changes of cervical fusion. IMPRESSION: No acute cardiopulmonary process. No significant interval change compared to previous. [facility], , 09/26/2024 1:50 PM
--- NOTE | 2024-09-26 13:56 | CT ---
EXAMINATION TYPE: CT abdomen pelvis w con DATE OF EXAM: 09/26/2024 COMPARISON: None CLINICAL INDICATION: Female, 79 years old with history of abd pain/n/v; PHH, Abdomen pain with NVD TECHNIQUE: Performed without Oral Contrast and with IV Contrast, patient injected with 100 ml mL of Isovue 300. CT DLP: 1288.[address] CTDI: mGy Automated exposure control for dose reduction was used. FINDINGS: The lung bases are clear. There is surgical absence of the gallbladder. There is no biliary ductal dilatation. There is no focal mass or organomegaly involving the liver, pancreas, spleen or adrenal glands. There is no solid renal mass or hydronephrosis and there is homogeneous contrast enhancement of the r enal parenchyma. The caliber the abdominal aorta is normal is no retroperitoneal adenopathy or hemorr kiersten. The bowel loops are normal in caliber and there is no evidence of dilatation or obstruction. No infla mmatory changes are identified in the bowel wall or mesentery. There is no free intraperitoneal air or fluid. No pelvic mass, free fluid, abscess or adenopathy. There are bilateral hip prostheses but no focal osseous lesions IMPRESSION: No significant abnormality seen. [facility], , 09/26/2024 1:53 PM
[2024-09-26] MEDS: cefTRIAXone IN SWFI 1,000 MG/10 ML SYRINGE IVP STA (14:04)
[2024-09-26] MEDS ORDERED: NALOXONE 0.4 MG/ML 1 ML VIAL IV PRN (14:11)
[2024-09-26] MEDS ORDERED: Potassium Replacement Protocol 1 EACH MISC MISCELLANE PRN (14:16)
[2024-09-26] MEDS: POTASSIUM CHLORIDE ER 20 MEQ TAB.ER PO SCH (14:33)
[2024-09-26] MEDS: SODIUM CHLORIDE 0.9% 1,000 ML IV SCH (14:34)
[2024-09-26] MEDS: ACETAMINOPHEN TAB 500 MG TAB PO STA (15:15)
[2024-09-26] MEDS: ONDANSETRON 4 MG/2 ML VIAL IVP PRN (15:19)
[2024-09-26] MEDS: ACETAMINOPHEN IV (For NPO) 1,000 MG in EMPTY BAG 1 BAG IVPB STA (15:47)
[2024-09-26] MEDS: HYDROcodone/APAP 10-325MG 1 EACH TAB PO PRN (18:52)
[2024-09-27] MEDS: POTASSIUM CHLORIDE ER 20 MEQ TAB.ER PO SCH (03:20)
[2024-09-27] MEDS: ASPIRIN 81 MG PO SCH (08:20)
[2024-09-27] MEDS: MAGNESIUM OXIDE 400 MG TAB PO SCH (08:20)
[2024-09-27] MEDS: ACETAMINOPHEN IV (For NPO) 1,000 MG in EMPTY BAG 1 BAG IVPB PRN (08:20)
[2024-09-27] MEDS ORDERED: cefTRIAXone IN SWFI 1,000 MG/10 ML SYRINGE IVP SCH (09:00)
--- NOTE | 2024-09-27 10:13 | P.HPIM ---
History of Present Illness H&P Date: 09/27/24 Yadira Schrader is a 79-year-old female patient of Dr. Phillips who presented with complaints of nausea vomiting and fever over the past few days.patient has a past medical history of breast cancer, GERD, hyperlipidemia, hypertension, osteoarthritis, anxiety and depression.chest x-ray completed showing no acute cardiopulmonary process.Interval change compared to previous. CT of abdomen and pelvis completed showing no significant abnormality seen. Lab work revealing WBC of 23.3, hemoglobin 13.3, sodium 134, potassium 3.0, bun 38, creatinine 1.30 lactic acid 1.0 AST 65 ALT 50. UA positive for urinary tract infection influenza RSV and COVID-19.vital signs showing temperature 101, heart rate 73, respiratory rate 18, blood pressure 147/66 with pulse ox 95% on room air this time patient will be admitted for UTI with sepsis. Preliminary blood culture positive. Patient started on IV Rocephin infectious disease service is consulted patient started on normal saline at 75 IV Tylenol for fever. This time patient is resting comfortably in bed family at bedside. Patient noted to have right flank pain. Patient reports some nausea. Patient denies chest pain or shortness of breath. Patient denies nausea vomiting or diarrhea. Patient denies urinary burning or frequency. Review of Systems please refer to HPI otherwise unremarkable Past Medical History Past Medical History: Cancer, GERD/Reflux, Hyperlipidemia, Hypertension, Osteoarthritis (OA) Additional Past Medical History / Comment(s): fluid retention ankles & feet, rheumatic fever/rheumatic heart disease x3 as a child, valve disease/heart murmur, hx. R breast cancer 2011-radiation & surgery, L breast cancer 2021/lumpectomy, pain & frequent numbness from small of back down legs-uses walker History of Any Multi-Drug Resistant Organisms: None Reported Past Surgical History: Breast Surgery, Hysterectomy, Joint Replacement, Orthopedic Surgery Additional Past Surgical History / Comment(s): lumpectomy right breast x2, L breast lumpectomy, surg. left knee to remove cartilage, partial thyroidectomy, TOTAL HIP REPLACEMENT LEFT AND RIGHT SIDE, bilateral cataract removal/lens implants. Past Anesthesia/Blood Transfusion Reactions: No Reported Reaction Past Psychological History: Anxiety, Depression Smoking Status: Former smoker Past Alcohol Use History: None Reported Past Drug Use History: None Reported - Past Family History Mother Son(s) Family Medical History: Cancer Daughter(s) Family Medical History: Cancer, Deep Vein Thrombosis (DVT) Additional Family Medical History / Comment(s): blood clot in arm, leukemia Medications and Allergies Home Medications Medication Instructions Recorded Confirmed Type Aspirin 81 mg PO DAILY 04/15/20 09/26/24 History Triamterene/Hydrochlorothiazid 1 tab PO DAILY 04/15/20 09/26/24 History [Triamterene-Hctz 75-50 mg Tab] Exemestane [Aromasin] 25 mg PO DAILY 01/29/24 09/26/24 History Furosemide [Lasix] 40 mg PO DAILY PRN 01/29/24 09/26/24 History HYDROcodone/APAP 10-325MG [[place] 1 tab PO Q4H PRN 01/29/24 09/26/24 History 10-325] Lactulose [Constulose] 10 - 20 gm PO Q6H PRN 01/29/24 09/26/24 History allopurinoL 100 mg PO DAILY 01/29/24 09/26/24 History methocarbamoL 750 mg PO Q6H PRN 01/29/24 09/26/24 History Cholecalciferol [Vitamin D3 (25 25 mcg PO DAILY 09/26/24 09/26/24 History Mcg = 1000 Iu)] Escitalopram [Lexapro] 10 mg PO DAILY 09/26/24 09/26/24 History Furosemide [Lasix] 40 mg PO DAILY 09/26/24 09/26/24 History Letrozole 2.5 mg PO DAILY 09/26/24 09/26/24 History Magnesium 250 mg PO DAILY 09/26/24 09/26/24 History Potassium Chloride ER [K-Dur 20] 20 meq PO DAILY 09/26/24 09/26/24 History Allergies Allergy/AdvReac Type Severity Reaction Status Date / Time celecoxib [From Celebrex] Allergy Abdominal Verified 09/26/24 13:28 Pain ibuprofen [From Motrin] Allergy Abdominal Verified 09/26/24 13:28 Pain metoprolol Allergy Rash/Hives Verified 09/26/24 13:28 quinapril [From Accupril] Allergy Rash/Hives Verified 09/26/24 13:28 Qgymrks-THK-ZrR Reductase Allergy Abdominal Verified 09/26/24 13:28 Inhibitor Pain [Yobaurh-Lza-Mvf Reductase Inhibitor] adhesive tape AdvReac Rash/Hives Verified 09/26/24 13:28 Physical Exam Vitals: Vital Signs Temp Pulse Pulse Resp BP BP Pulse Ox 09/27/24 07:40 101.0 F H 73 18 147/66 95 09/27/24 02:15 97.7 F 67 18 109/68 94 L 09/26/24 21:31 64 18 104/61 97 09/26/24 20:28 98.9 F 66 16 92/59 97 09/26/24 17:56 100.8 F H 92 18 91/46 96 09/26/24 16:30 99.6 F 09/26/24 15:54 87 20 149/78 95 09/26/24 15:07 102.8 F H 09/26/24 15:00 95 09/26/24 12:58 98.9 F 83 18 93/51 94 L Head normocephalic Neck supple Lungs clear to auscultation bilaterally no wheezing or crackles Heart regular rate and rhythm S1-S2, no rub or gallop Abdomen is soft nontender nondistended positive bowel sounds no hepatosplenomegaly. Right flank pain noted Extremities no edema Neuro alert and orientated to 3 Results CBC & Chem 7: 09/26/24 12:36 09/27/24 06:37 Labs: Abnormal Lab Results - Last 24 Hours (Table) 09/26/24 09/26/24 09/26/24 Range/Units 12:36 12:36 12:43 WBC 22.3 H (3.8-10.6) k/uL Neutrophils # 20.6 H (1.3-7.7) k/uL Lymphocytes # 0.6 L (1.0-4.8) k/uL Sodium 134 L (137-145) mmol/L Potassium 3.0 L (3.5-5.1) mmol/L Chloride 97 L (98-107) mmol/L BUN 38 H (7-17) mg/dL Creatinine 1.30 H (0.52-1.04) mg/dL Glucose 134 H (74-99) mg/dL AST 65 H (14-36) U/L ALT 50 H (4-34) U/L Urine Appearance Cloudy H (Clear) Urine Protein 1+ H (Negative) Urine Blood Small H (Negative) Urine Nitrite Positive H (Negative) Ur Leukocyte Esterase Large H (Negative) Urine WBC 35 H (0-5) /hpf Urine Bacteria Rare H (None) /hpf 09/27/24 Range/Units 02:00 WBC (3.8-10.6) k/uL Neutrophils # (1.3-7.7) k/uL Lymphocytes # (1.0-4.8) k/uL Sodium (137-145) mmol/L Potassium 3.1 L (3.5-5.1) mmol/L Chloride (98-107) mmol/L BUN (7-17) mg/dL Creatinine (0.52-1.04) mg/dL Glucose (74-99) mg/dL AST (14-36) U/L ALT (4-34) U/L Urine Appearance (Clear) Urine Protein (Negative) Urine Blood (Negative) Urine Nitrite (Negative) Ur Leukocyte Esterase (Negative) Urine WBC (0-5) /hpf Urine Bacteria (None) /hpf Microbiology - Last 24 Hours (Table) 09/26/24 13:58 Blood Culture Gram Stain - Preliminary Blood Blood Culture - Preliminary Molecular ID Assessment and Plan Assessment: 1. UTI with sepsis as evidenced by fever and leukocytosis and Positive blood culture 2. Acute kidney injury secondary to sepsis and dehydration 3. Elevated liver enzymes. Continue to monitor 4. History of GERD 5. History of essential hypertension 6. History of hyperlipidemia 7. History of anxiety and depression DVT prophylaxis Lovenox. GI prophylaxis Protonix Patient started on IV antibiotic Continue normal saline Infectious disease service is consulted Urine and blood cultures ordered Repeat labs ordered Time with Patient: Greater than 30 (Greater than 60% of the total time spent in counseling and coordination of care)
[2024-09-27] MEDS: ESCITALOPRAM 10 MG TAB PO SCH (10:46)
[2024-09-27 12:58] LABS: Basophils % (A) 0 %; Eosinophils % (A) 0 %; HCT 36.4 % (34.0-46.0); HGB 11.6 gm/dL (11.4-16.0); Lymphocytes % (A) 7 %; MCH 28.5 pg (25.0-35.0); MCHC 31.9 g/dL (31.0-37.0); MCV 89.2 fL (80.0-100.0); Mean Platelet Volume 8.7; Monocytes # (A) 0.6 k/uL (0-1.0); Monocytes % (A) 5 %; Neutrophils # (A) 11.5 k/uL (1.3-7.7); Neutrophils % (A) 86 %; Platelet Count 207 k/uL (150-450); RBC 4.08 m/uL (3.80-5.40); RDW 14.3 % (11.5-15.5); WBC 13.5 k/uL (3.8-10.6)
[2024-09-27 13:33] LABS: ALT 55 U/L (4-34); AST 67 U/L (14-36); African American GFR (CKD) 45 (>60 ml/min/1.73 sqM); Albumin 3.2 g/dL (3.5-5.0); Albumin/Globulin Ratio 1.2; Alkaline Phosphatase 92 U/L (38-126); Anion Gap 5 mmol/L; Blood Urea Nitrogen 32 mg/dL (7-17); Calcium 8.6 mg/dL (8.4-10.2); Carbon Dioxide 28 mmol/L (22-30); Chloride 102 mmol/L (98-107); Globulin 2.6 g/dL; Glucose 93 mg/dL (74-99); Non-African American GFR(CKD) 39 (>60 ml/min/1.73 sqM); Potassium 3.5 mmol/L (3.5-5.1); Sodium 135 mmol/L (137-145); Total Bilirubin 0.4 mg/dL (0.2-1.3); Total Protein 5.8 g/dL (6.3-8.2)
[2024-09-27] MEDS ORDERED: methocarbamoL 750 MG TAB PO PRN (16:04)
--- NOTE | 2024-09-27 21:48 | P.CONS ---
History of Present Illness - Reason for Consult Consult date: 09/27/24 Positive blood culture Requesting physician: Tani Manriquez - Chief Complaint Right flank pain fever and vomiting x 1 day - History of Present Illness Patient is a 79-year-old female with a past medical history of kidney for reflux hypertension hyperlipidemia osteoarthritis right breast cancer patient was brought into the hospital concerning for fever nausea vomiting and abdominal pain in this patient symptom has been going on for more than day before presentation to the hospital patient has been complaining of pain mostly to the right flank area describing it to be sharp moderate intensity without any radiation with associated nausea vomiting denies having any diarrhea patient denies any headache or URI symptoms no chest pain no shortness of breath occas ional cough on presentation to the hospital patient did have temperature of 102.8 F and the patient did spike a fever of 101 F this morning patient was nontachycardic hypotensive or hypoxic and no need for supplemental oxygen she did have a white count of 22.3 which is down to 13.5 with a left shift BUN/creatinine has been mildly elevated liver enzymes are mildly elevated urine has been positive influenza RSV COVID testing was negative chest x-ray did not show acute pneumonia CT of abdominal pelvis also did not show any biliary duct dilatation gallbladder was surgically absent and no evidence of any abnormality to the kidney patient blood cultures given positive with gram-negative bacilli patient has been on ceftriaxone infectious disease was consulted for further management of antibiotic therapy Review of Systems Positive point and negatives has been mentioned in the HPI, complete review of systems was performed and all other systems are negative Past Medical History Past Medical History: Cancer, GERD/Reflux, Hyperlipidemia, Hypertension, Osteoarthritis (OA) Additional Past Medical History / Comment(s): fluid retention ankles & feet, rheumatic fever/rheumatic heart disease x3 as a child, valve disease/heart murmur, hx. R breast cancer 2011-radiation & surgery, L breast cancer 2021/l umpectomy, pain & frequent numbness from small of back down legs-uses walker History of Any Multi-Drug Resistant Organisms: None Reported Past Surgical History: Breast Surgery, Hysterectomy, Joint Replacement, Orthopedic Surgery Additional Past Surgical History / Comment(s): lumpectomy right breast x2, L breast lumpectomy, surg. left knee to remove cartilage, partial thyroidectomy, TOTAL HIP REPLACEMENT LEFT AND RIGHT SIDE, bilateral cataract removal/lens implants. Past Anesthesia/Blood Transfusion Reactions: No Reported Reaction Past Psychological History: Anxiety, Depression Smoking Status: Former smoker Past Alcohol Use History: None Reported Past Drug Use History: None Reported - Past Family History Mother Son(s) Family Medical History: Cancer Daughter(s) Family Medical History: Cancer, Deep Vein Thrombosis (DVT) Additional Family Medical History / Comment(s): blood clot in arm, leukemia Medications and Allergies Home Medications Medication Instructions Recorded Confirmed Type Aspirin 81 mg PO DAILY 04/15/20 09/26/24 History Triamterene/Hydrochlorothiazid 1 tab PO DAILY 04/15/20 09/26/24 History [Triamterene-Hctz 75-50 mg Tab] Exemestane [Aromasin] 25 mg PO DAILY 01/29/24 09/26/24 History Furosemide [Lasix] 40 mg PO DAILY PRN 01/29/24 09/26/24 History HYDROcodone/APAP 10-325MG [[place] 1 tab PO Q4H PRN 01/29/24 09/26/24 History 10-325] Lactulose [Constulose] 10 - 20 gm PO Q6H PRN 01/29/24 09/26/24 History allopurinoL 100 mg PO DAILY 01/29/24 09/26/24 History methocarbamoL 750 mg PO Q6H PRN 01/29/24 09/26/24 History Cholecalciferol [Vitamin D3 (25 25 mcg PO DAILY 09/26/24 09/26/24 History Mcg = 1000 Iu)] Escitalopram [Lexapro] 10 mg PO DAILY 09/26/24 09/26/24 History Furosemide [Lasix] 40 mg PO DAILY 09/26/24 09/26/24 History Letrozole 2.5 mg PO DAILY 09/26/24 09/26/24 History Magnesium 250 mg PO DAILY 09/26/24 09/26/24 History Potassium Chloride ER [K-Dur 20] 20 meq PO DAILY 09/26/24 09/26/24 History Allergies Allergy/AdvReac Type Severity Reaction Status Date / Time celecoxib [From Celebrex] Allergy Abdominal Verified 09/26/24 13:28 Pain ibuprofen [From Motrin] Allergy Abdominal Verified 09/26/24 13:28 Pain metoprolol Allergy Rash/Hives Verified 09/26/24 13:28 quinapril [From Accupril] Allergy Rash/Hives Verified 09/26/24 13:28 Oahxyvg-QJH-CiE Reductase Allergy Abdominal Verified 09/26/24 13:28 Inhibitor Pain [Mibbrut-Wkh-Koe Reductase Inhibitor] adhesive tape AdvReac Rash/Hives Verified 09/26/24 13:28 Physical Exam Vitals: Vital Signs Temp Pulse Pulse Resp BP BP Pulse Ox 09/27/24 12:04 98.2 F 58 L 18 116/64 93 L 09/27/24 08:40 73 18 09/27/24 07:40 101.0 F H 73 18 147/66 95 09/27/24 02:15 97.7 F 67 18 109/68 94 L 09/26/24 21:31 64 18 104/61 97 09/26/24 20:28 98.9 F 66 16 92/59 97 09/26/24 17:56 100.8 F H 92 18 91/46 96 09/26/24 16:30 99.6 F 09/26/24 15:54 87 20 149/78 95 09/26/24 15:07 102.8 F H 09/26/24 15:00 95 Intake and Output 09/26/24 09/27/24 09/27/24 22:59 06:59 14:59 Other: Voiding Method External Catheter Weight 90.718 kg GENERAL DESCRIPTION: An elderly female lying in bed, no distress. No tachypnea or accessory muscle of respiration use. HEENT: Shows Pallor , no scleral icterus. Oral mucous membrane is dry. No pharyngeal erythema or thrush NECK: Trachea central, no thyromegaly. LUNGS: Unlabored breathing. Clear to auscultation anteriorly. No wheeze or crackle. HEART: S1, S2, regular rate and rhythm. No loud murmur ABDOMEN: Soft, no tenderness , guarding or rigidity, no organomegaly EXTREMITIES: No edema of feet. SKIN: No rash, no masses palpable. NEUROLOGICAL: The patient is awake, alert, oriented x3, mood and affect normal. Results CBC & Chem 7: 09/27/24 12:45 09/27/24 12:45 Labs: Abnormal Lab Results - Last 24 Hours (Table) 09/27/24 09/27/24 09/27/24 Range/Units 02:00 12:45 12:45 WBC 13.5 H (3.8-10.6) k/uL Neutrophils # 11.5 H (1.3-7.7) k/uL Sodium 135 L (137-145) mmol/L Potassium 3.1 L (3.5-5.1) mmol/L BUN 32 H (7-17) mg/dL Creatinine 1.31 H (0.52-1.04) mg/dL AST 67 H (14-36) U/L ALT 55 H (4-34) U/L Total Protein 5.8 L (6.3-8.2) g/dL Albumin 3.2 L (3.5-5.0) g/dL Microbiology - Last 24 Hours (Table) 09/26/24 13:58 Blood Culture Gram Stain - Preliminary Blood Blood Culture - Preliminary Molecular ID Assessment and Plan (1) Sepsis Current Visit: Yes Status: Acute Code(s): A41.9 - SEPSIS, UNSPECIFIED ORGANISM SNOMED Code(s): 30436699 (2) Gram-negative bacteremia Current Visit: Yes Status: Acute Code(s): R78.81 - BACTEREMIA SNOMED Code(s): 680733808266 (3) Leukocytosis Current Visit: Yes Status: Acute Code(s): D72.829 - ELEVATED WHITE BLOOD CELL COUNT, UNSPECIFIED SNOMED Code(s): 785415620 (4) UTI (urinary tract infection) Current Visit: Yes Status: Acute Code(s): N39.0 - URINARY TRACT INFECTION, SITE NOT SPECIFIED SNOMED Code(s): 96960253 Plan: 1patient presented to hospital with sepsis in this patient who did have fever elevated white count meeting criteria for SIRS, source is likely right-sided pyelonephritis and now with evidence of secondary bacteremia 2-E. coli bacteremia source is likely right-sided pyelonephritis 3-Rocephin 2 g daily while waiting for sensitivity to finalize Multiple family members at the bedside questions answered We will follow on clinical condition and cultures to further adjust medication if needed Thank you for this consultation we will follow the patient along with you Dictation was produced using [employer] dictation software. please excuse any grammatical, word or spelling errors. Time with Patient: Greater than 30
[2024-09-28 08:33] LABS: Basophils # (A) 0.03 X 10*3/uL (0.00-0.10); Basophils % (A) 0.4 %; Eosinophils # (A) 0.04 X 10*3/uL (0.04-0.35); Eosinophils % (A) 0.5 %; HCT 35.8 % (37.2-46.3); HGB 11.4 g/dL (12.0-15.0); Lymphocytes # (A) 1.14 X 10*3/uL (0.90-5.00); Lymphocytes % (A) 13.3 %; MCH 29.4 pg (27.0-32.0); MCHC 31.8 g/dL (32.0-37.0); MCV 92.3 FL (80.0-97.0); Mean Platelet Volume 12.4 FL (9.5-12.2); Monocytes # (A) 1.04 X 10*3/uL (0.20-1.00); Monocytes % (A) 12.1 %; NRBC Per 100 WBC 0 X 10*3/uL (0.00-0.01); Neutrophils # (A) 6.25 X 10*3/uL (1.80-7.70); Platelet Count 186 X 10*3/uL (140-440); RBC 3.88 X 10*6/uL (4.10-5.20); RDW 15.5 % (11.5-14.5); WBC 8.56 X 10*3/uL (4.50-10.00)
[2024-09-28] MEDS: ENOXAPARIN 40 MG/0.4 ML SYRINGE SQ SCH (08:48)
[2024-09-28] MEDS: LETROZOLE 2.5 MG TAB PO SCH (08:48)
[2024-09-28] MEDS: PANTOPRAZOLE 40 MG TABLET PO SCH (08:48)
[2024-09-28] MEDS: ESCITALOPRAM 10 MG TAB PO SCH (09:00)
--- NOTE | 2024-09-28 16:59 | P.PN ---
Subjective Progress Note Date: 09/28/24 Yadira Schrader is a 79-year-old female patient of Dr. Phillips who presented with complaints of nausea vomiting and fever over the past few days.patient has a past medical history of breast cancer, GERD, hyperlipidemia, hypertension, osteoarthritis, anxiety and depression.chest x-ray completed showing no acute cardiopulmonary process.Interval change compared to previous. CT of abdomen and pelvis completed showing no significant abnormality seen. Lab work revealing WBC of 23.3, hemoglobin 13.3, sodium 134, potassium 3.0, bun 38, creatinine 1.30 lactic acid 1.0 AST 65 ALT 50. UA positive for urinary tract infection influenza RSV and COVID-19.vital signs showing temperature 101, heart rate 73, respiratory rate 18, blood pressure 147/66 with pulse ox 95% on room air this time patient will be admitted for UTI with sepsis. Preliminary blood culture positive. Patient started on IV Rocephin infectious disease service is consulted patient started on normal saline at 75 IV Tylenol for fever. This time patient is resting comfortably in bed family at bedside. Patient noted to have right flank pain. Patient reports some nausea. Patient denies chest pain or shortness of breath. Patient denies nausea vomiting or diarrhea. Patient denies urinary burning or frequency. On 09/28/2024 patient was seen and examined on the medical floor she is alert and oriented x 3 in no apparent distress there is no fever or chills no headache or dizziness no chest pain no shortness of breath no cough no nausea or vomiting no abdominal pain no diarrhea no urinary symptoms. Patient had positive blood culture for gram-negative bacilli, she remains on IV ceftriaxone, will continue to follow closely. Objective - Vital Signs Vital signs: Vital Signs Temp 99 F 09/28/24 08:00 Pulse 66 09/28/24 08:00 Resp 19 09/28/24 08:00 BP 140/70 09/28/24 08:00 Pulse Ox 98 09/28/24 08:00 FiO2 Intake & Output 09/27/24 09/28/24 09/28/24 18:59 06:59 18:59 Intake Total 240 Output Total 400 100 Balance -160 -100 Weight 90.718 kg Intake: Oral 240 Output: Urine 400 100 Other: Voiding Method External Catheter External Catheter # Voids 1 1 - Exam In general patient is alert and oriented x 3 in no distress Head normocephalic, and atraumatic Neck supple, no JVD no goiter Lungs clear to auscultation bilaterally no wheezing or crackles Heart regular rate and rhythm S1-S2, no rub or gallop Abdomen is soft nontender nondistended positive bowel sounds no hepatosplenomegaly. Right flank pain noted Extremities no edema Neuro no gross focal deficit - Labs CBC & Chem 7: 09/28/24 04:15 09/27/24 12:45 Labs: Abnormal Lab Results - Last 24 Hours (Table) 09/27/24 09/27/24 09/28/24 Range/Units 12:45 12:45 04:15 WBC 13.5 H (3.8-10.6) k/uL RBC 3.88 L (4.10-5.20) X 10*6/uL Hgb 11.4 L (12.0-15.0) g/dL Hct 35.8 L (37.2-46.3) % MCHC 31.8 L (32.0-37.0) g/dL RDW 15.5 H (11.5-14.5) % MPV 12.4 H (9.5-12.2) FL Immature Gran # 0.06 H (0.00-0.04) X 10*3/uL Neutrophils # 11.5 H (1.3-7.7) k/uL Monocytes # 1.04 H (0.20-1.00) X 10*3/uL Sodium 135 L (137-145) mmol/L BUN 32 H (7-17) mg/dL Creatinine 1.31 H (0.52-1.04) mg/dL AST 67 H (14-36) U/L ALT 55 H (4-34) U/L Total Protein 5.8 L (6.3-8.2) g/dL Albumin 3.2 L (3.5-5.0) g/dL Microbiology - Last 24 Hours (Table) 09/26/24 13:58 Blood Culture Gram Stain - Preliminary Blood Blood Culture - Preliminary Gram Neg Bacilli Molecular ID 09/26/24 12:43 Urine Culture - Preliminary Urine,Voided Gram Neg Bacilli Assessment and Plan Assessment: 1. UTI with sepsis as evidenced by fever and leukocytosis and Positive blood culture 2. Acute kidney injury secondary to sepsis and dehydration 3. Elevated liver enzymes. Continue to monitor 4. History of GERD 5. History of essential hypertension 6. History of hyperlipidemia 7. History of anxiety and depression DVT prophylaxis Lovenox. GI prophylaxis Protonix Patient started on IV antibiotic Continue normal saline Infectious disease service is consulted Urine and blood cultures ordered Repeat labs ordered
--- NOTE | 2024-09-28 22:07 | P.PN ---
Subjective Progress Note Date: 09/28/24 Principal diagnosis: Reason for follow-up is UTI and bacteremia Patient is a 79-year-old female with a past medical history of kidney for reflux hypertension hyperlipidemia osteoarthritis right breast cancer patient was brought into the hospital concerning for fever nausea vomiting and abdominal pain patient has been diagnosed with right-sided pyonephritis with bacteremia CT was negative for any stress abnormality. On today's evaluation that is 09/28/2024,the patient denies any fever or any chills, patient is breathing comfortably on room air, the patient denies chest pain shortness of breath and no significant cough, patient denies abdominal pain, no nausea vomiting or diarrhea. Patient white count normalized to 8.56 blood urine with gram-negative bacilli Objective - Vital Signs Vital signs: Vital Signs Temp 99 F 09/28/24 08:00 Pulse 66 09/28/24 08:00 Resp 19 09/28/24 08:00 BP 140/70 09/28/24 08:00 Pulse Ox 98 09/28/24 08:00 FiO2 Intake & Output 09/27/24 09/28/24 09/28/24 18:59 06:59 18:59 Intake Total 240 Output Total 400 100 Balance -160 -100 Weight 90.718 kg Intake: Oral 240 Output: Urine 400 100 Other: Voiding Method External Catheter External Catheter Bedside Commode # Voids 1 1 - Exam GENERAL DESCRIPTION: An elderly female lying in bed in no distress RESPIRATORY SYSTEM: Unlabored breathing , decreased breath sounds at bases HEART: S1 S2 regular rate and rhythm , ABDOMEN: Soft , no tenderness EXTREMITIES: No edema feet - Labs CBC & Chem 7: 09/28/24 04:15 09/27/24 12:45 Labs: Abnormal Lab Results - Last 24 Hours (Table) 09/27/24 09/27/24 09/28/24 Range/Units 12:45 12:45 04:15 WBC 13.5 H (3.8-10.6) k/uL RBC 3.88 L (4.10-5.20) X 10*6/uL Hgb 11.4 L (12.0-15.0) g/dL Hct 35.8 L (37.2-46.3) % MCHC 31.8 L (32.0-37.0) g/dL RDW 15.5 H (11.5-14.5) % MPV 12.4 H (9.5-12.2) FL Immature Gran # 0.06 H (0.00-0.04) X 10*3/uL Neutrophils # 11.5 H (1.3-7.7) k/uL Monocytes # 1.04 H (0.20-1.00) X 10*3/uL Sodium 135 L (137-145) mmol/L BUN 32 H (7-17) mg/dL Creatinine 1.31 H (0.52-1.04) mg/dL AST 67 H (14-36) U/L ALT 55 H (4-34) U/L Total Protein 5.8 L (6.3-8.2) g/dL Albumin 3.2 L (3.5-5.0) g/dL Microbiology - Last 24 Hours (Table) 09/26/24 13:58 Blood Culture Gram Stain - Preliminary Blood Blood Culture - Preliminary Gram Neg Bacilli Molecular ID 09/26/24 12:43 Urine Culture - Preliminary Urine,Voided Gram Neg Bacilli Assessment and Plan (1) Sepsis Current Visit: Yes Status: Acute Code(s): A41.9 - SEPSIS, UNSPECIFIED ORGANISM SNOMED Code(s): 15795495 (2) Gram-negative bacteremia Current Visit: Yes Status: Acute Code(s): R78.81 - BACTEREMIA SNOMED Code(s): 505881734504 (3) Leukocytosis Current Visit: Yes Status: Acute Code(s): D72.829 - ELEVATED WHITE BLOOD CELL COUNT, UNSPECIFIED SNOMED Code(s): 474357548 (4) UTI (urinary tract infection) Current Visit: Yes Status: Acute Code(s): N39.0 - URINARY TRACT INFECTION, SITE NOT SPECIFIED SNOMED Code(s): 59848264 Plan: 1patient presented to hospital with sepsis in this patient who did have fever elevated white count meeting criteria for SIRS, source is likely right-sided pyelonephritis and now with evidence of secondary bacteremia 2-E. coli bacteremia source is likely right-sided pyelonephritis 3-patient did have improvement in the fever pattern white count normalized to continue Rocephin 2 g daily while waiting for sensitivity to finalize, incentive spirometry also ordered Multiple family members at the bedside questions answered Dictation was produced using [employer] dictation software. please excuse any grammatical, word or spelling errors. Time with Patient: Less than 30
[2024-09-28 22:43] LABS: ALT 49 U/L (8-44); AST 53 U/L (13-35); Albumin 3.2 g/dL (3.8-4.9); Albumin/Globulin Ratio 1.39 Ratio (1.60-3.17); Alkaline Phosphatase 109 U/L (41-126); BUN/Creat Ratio 19.77 Ratio (12.00-20.00); Blood Urea Nitrogen 25.7 mg/dL (9.0-27.0); Calcium 8.7 mg/dL (8.7-10.3); Carbon Dioxide 22.7 mmol/L (21.6-31.8); Chloride 102 mmol/L (96-109); Globulin 2.3 g/dL (1.6-3.3); Glucose 88 mg/dL (70-110); Potassium 3.4 mmol/L (3.5-5.5); Sodium 138 mmol/L (135-145); Total Bilirubin <0.2 mg/dL (0.3-1.2); Total Protein 5.5 g/dL (6.2-8.2)
[2024-09-28] MEDS ORDERED: Potassium Replacement Protocol 1 EACH MISC MISCELLANE PRN (22:44)
[2024-09-28] MEDS: POTASSIUM CHLORIDE ER 20 MEQ TAB.ER PO SCH (22:51)
[2024-09-29 08:37] LABS: Basophils # (A) 0.04 X 10*3/uL (0.00-0.10); Basophils % (A) 0.6 %; Eosinophils # (A) 0.06 X 10*3/uL (0.04-0.35); Eosinophils % (A) 0.9 %; HCT 33.7 % (37.2-46.3); HGB 10.9 g/dL (12.0-15.0); Lymphocytes # (A) 1.73 X 10*3/uL (0.90-5.00); Lymphocytes % (A) 25.1 %; MCH 29.2 pg (27.0-32.0); MCHC 32.3 g/dL (32.0-37.0); MCV 90.3 FL (80.0-97.0); Mean Platelet Volume 12.3 FL (9.5-12.2); Monocytes # (A) 0.96 X 10*3/uL (0.20-1.00); Monocytes % (A) 13.9 %; NRBC Per 100 WBC 0 X 10*3/uL (0.00-0.01); Neutrophils # (A) 4.07 X 10*3/uL (1.80-7.70); Neutrophils % (A) 59.1 %; Platelet Count 196 X 10*3/uL (140-440); RBC 3.73 X 10*6/uL (4.10-5.20); RDW 15.4 % (11.5-14.5); WBC 6.89 X 10*3/uL (4.50-10.00)
--- NOTE | 2024-09-29 09:12 | P.PN ---
Subjective Progress Note Date: 09/29/24 Yadira Schrader is a 79-year-old female patient of Dr. Phillips who presented with complaints of nausea vomiting and fever over the past few days.patient has a past medical history of breast cancer, GERD, hyperlipidemia, hypertension, osteoarthritis, anxiety and depression.chest x-ray completed showing no acute cardiopulmonary process.Interval change compared to previous. CT of abdomen and pelvis completed showing no significant abnormality seen. Lab work revealing WBC of 23.3, hemoglobin 13.3, sodium 134, potassium 3.0, bun 38, creatinine 1.30 lactic acid 1.0 AST 65 ALT 50. UA positive for urinary tract infection influenza RSV and COVID-19.vital signs showing temperature 101, heart rate 73, respiratory rate 18, blood pressure 147/66 with pulse ox 95% on room air this time patient will be admitted for UTI with sepsis. Preliminary blood culture positive. Patient started on IV Rocephin infectious disease service is consulted patient started on normal saline at 75 IV Tylenol for fever. This time patient is resting comfortably in bed family at bedside. Patient noted to have right flank pain. Patient reports some nausea. Patient denies chest pain or shortness of breath. Patient denies nausea vomiting or diarrhea. Patient denies urinary burning or frequency. On 09/28/2024 patient was seen and examined on the medical floor she is alert and oriented x 3 in no apparent distress there is no fever or chills no headache or dizziness no chest pain no shortness of breath no cough no nausea or vomiting no abdominal pain no diarrhea no urinary symptoms. Patient had positive blood culture for gram-negative bacilli, she remains on IV ceftriaxone, will continue to follow closely. On 09/29/2024 patient is alert and oriented x 3. Patient complaining about increased sinus congestion. Slight wheezing upon auscultation. At this time will order chest x-ray and DuoNeb breathing treatments patient maintained on IV Rocephin patient reports improvement with right flank pain. Infectious disease services are following white blood cell improving to 6.89. Patient has remained afebrile. Patient denies chest pain or shortness of breath. Patient denies nausea vomiting or diarrhea. Patient denies any urinary burning or frequency Objective - Vital Signs Vital signs: Vital Signs Temp 98.9 F 09/29/24 07:58 Pulse 69 09/29/24 07:58 Resp 17 09/29/24 07:58 BP 166/74 09/29/24 07:58 Pulse Ox 94 L 09/29/24 07:58 FiO2 Intake & Output 09/28/24 09/29/24 09/29/24 18:59 06:59 18:59 Intake Total 1100 240 Balance 1100 240 Intake: Oral 1100 240 Other: Voiding Method Bedside Commode Toilet Bedside Commode # Voids 3 1 - Exam In general patient is alert and oriented x 3 in no distress Head normocephalic, and atraumatic Neck supple, no JVD no goiter Lungs clear to auscultation bilaterally no wheezing or crackles Heart regular rate and rhythm S1-S2, no rub or gallop Abdomen is soft nontender nondistended positive bowel sounds no hepatosplenomegaly. Right flank pain noted Extremities no edema Neuro no gross focal deficit - Labs CBC & Chem 7: 09/29/24 04:37 09/28/24 04:15 Labs: Abnormal Lab Results - Last 24 Hours (Table) 09/28/24 09/29/24 Range/Units 04:15 04:37 RBC 3.73 L (4.10-5.20) X 10*6/uL Hgb 10.9 L (12.0-15.0) g/dL Hct 33.7 L (37.2-46.3) % RDW 15.4 H (11.5-14.5) % MPV 12.3 H (9.5-12.2) FL Potassium 3.4 L (3.5-5.5) mmol/L Anion Gap 13.30 H (4.00-12.00) mmol/L Est GFR (CKD-EPI) 42 L (>=60) Total Bilirubin <0.2 L (0.3-1.2) mg/dL AST 53 H (13-35) U/L ALT 49 H (8-44) U/L Total Protein 5.5 L (6.2-8.2) g/dL Albumin 3.2 L (3.8-4.9) g/dL Albumin/Globulin Ratio 1.39 L (1.60-3.17) Ratio Microbiology - Last 24 Hours (Table) 09/26/24 12:43 Urine Culture - Preliminary Urine,Voided Escherichia coli 09/26/24 13:58 Blood Culture Gram Stain - Preliminary Blood Blood Culture - Preliminary Gram Neg Bacilli Molecular ID Assessment and Plan Assessment: 1. UTI with sepsis as evidenced by fever and leukocytosis and Positive blood culture 2. Acute kidney injury secondary to sepsis and dehydration 3. Elevated liver enzymes. Continue to monitor 4. History of GERD 5. History of essential hypertension 6. History of hyperlipidemia 7. History of anxiety and depression DVT prophylaxis Lovenox. GI prophylaxis Protonix Patient started on IV antibiotic Continue normal saline Infectious disease service is consulted Urine and blood cultures ordered Repeat labs ordered
[2024-09-29 09:30] LABS: AST 44 U/L (13-35); Albumin 3.2 g/dL (3.8-4.9); Albumin/Globulin Ratio 1.52 Ratio (1.60-3.17); Blood Urea Nitrogen 19.2 mg/dL (9.0-27.0); Calcium 8.6 mg/dL (8.7-10.3); Carbon Dioxide 26.6 mmol/L (21.6-31.8); Chloride 104 mmol/L (96-109); Globulin 2.1 g/dL (1.6-3.3); Glucose 90 mg/dL (70-110); Potassium 3.6 mmol/L (3.5-5.5); Sodium 139 mmol/L (135-145); Total Bilirubin <0.2 mg/dL (0.3-1.2); Total Protein 5.3 g/dL (6.2-8.2)
[2024-09-29 09:31] LABS: ALT 49 U/L (8-44); Alkaline Phosphatase 110 U/L (41-126)
--- NOTE | 2024-09-29 10:33 | XR ---
EXAMINATION TYPE: XR chest 2V DATE OF EXAM: 09/29/2024 10:19 AM COMPARISON: Chest radiographs from 09/26/2024 CLINICAL INDICATION: Female, 79 years old with history of cough, wheezes; [facility] TECHNIQUE: XR chest 2V Frontal and lateral views of the chest. FINDINGS: Lungs/Pleura: There is no evidence of pleural effusion, focal consolidation, or pneumothorax. Pulmonary vascularity: Unremarkable. Heart/mediastinum: Cardiomediastinal silhouette is unremarkable. Musculoskeletal: No acute osseous pathology. There is fixation hardware in the lower cervical spine. Other findings: None IMPRESSION: No acute cardiopulmonary disease/process. [facility], , 09/29/2024 10:30 AM
[2024-09-29] MEDS: IPRATROPIUM-ALBUTEROL 3 ML NEB INHALATION SCH (11:33)
[2024-09-29] MEDS: POTASSIUM CHLORIDE ER 20 MEQ TAB.ER PO SCH (11:46)
--- NOTE | 2024-09-29 13:31 | P.PN ---
Subjective Progress Note Date: 09/29/24 Principal diagnosis: Reason for follow-up is UTI and bacteremia Patient is a 79-year-old female with a past medical history of kidney for reflux hypertension hyperlipidemia osteoarthritis right breast cancer patient was brought into the hospital concerning for fever nausea vomiting and abdominal pain patient has been diagnosed with right-sided pyonephritis with bacteremia CT was negative for any stress abnormality. On today's evaluation that is 09/29/2024,the patient remains to be afebrile, patient is on room air not requiring supplemental oxygen and denies any s hortness of breath no chest pain did have occasional dry cough.Patient denies having any nausea or vomiting, improvement of right flank pain no diarrhea. Patient did have a white count of 6.89 creatinine is 1.0 blood and urine with E. coli sensitive pathogen chest x-ray no acute cardiopulmonary disease process influenza RSV COVID testing negative Objective - Vital Signs Vital signs: Vital Signs Temp 98.9 F 09/29/24 07:58 Pulse 69 09/29/24 07:58 Resp 17 09/29/24 07:58 BP 166/74 09/29/24 07:58 Pulse Ox 94 L 09/29/24 07:58 FiO2 Intake & Output 09/28/24 09/29/24 09/29/24 18:59 06:59 18:59 Intake Total 1100 240 Balance 1100 240 Intake: Oral 1100 240 Other: Voiding Method Bedside Commode Toilet Bedside Commode # Voids 3 1 - Exam GENERAL DESCRIPTION: An elderly female lying in bed in no distress RESPIRATORY SYSTEM: Unlabored breathing , decreased breath sounds at bases HEART: S1 S2 regular rate and rhythm , ABDOMEN: Soft , no tenderness EXTREMITIES: No edema feet - Labs CBC & Chem 7: 09/29/24 04:37 09/29/24 04:37 Labs: Abnormal Lab Results - Last 24 Hours (Table) 09/28/24 09/29/24 09/29/24 Range/Units 04:15 04:37 04:37 RBC 3.73 L (4.10-5.20) X 10*6/uL Hgb 10.9 L (12.0-15.0) g/dL Hct 33.7 L (37.2-46.3) % RDW 15.4 H (11.5-14.5) % MPV 12.3 H (9.5-12.2) FL Potassium 3.4 L (3.5-5.5) mmol/L Anion Gap 13.30 H (4.00-12.00) mmol/L Est GFR (CKD-EPI) 42 L 58 L (>=60) Calcium 8.6 L (8.7-10.3) mg/dL Total Bilirubin <0.2 L <0.2 L (0.3-1.2) mg/dL AST 53 H 44 H (13-35) U/L ALT 49 H 49 H (8-44) U/L Total Protein 5.5 L 5.3 L (6.2-8.2) g/dL Albumin 3.2 L 3.2 L (3.8-4.9) g/dL Albumin/Globulin Ratio 1.39 L 1.52 L (1.60-3.17) Ratio Microbiology - Last 24 Hours (Table) 09/26/24 13:58 Blood Culture Gram Stain - Final Blood Blood Culture - Final Escherichia coli Molecular ID 09/26/24 12:43 Urine Culture - Preliminary Urine,Voided Escherichia coli Assessment and Plan (1) Sepsis Current Visit: Yes Status: Acute Code(s): A41.9 - SEPSIS, UNSPECIFIED ORGANISM SNOMED Code(s): 22696405 (2) Gram-negative bacteremia Current Visit: Yes Status: Acute Code(s): R78.81 - BACTEREMIA SNOMED Code(s): 669109395423 (3) Leukocytosis Current Visit: Yes Status: Acute Code(s): D72.829 - ELEVATED WHITE BLOOD CELL COUNT, UNSPECIFIED SNOMED Code(s): 717745681 (4) UTI (urinary tract infection) Current Visit: Yes Status: Acute Code(s): N39.0 - URINARY TRACT INFECTION, SITE NOT SPECIFIED SNOMED Code(s): 60977938 Plan: 1patient presented to hospital with sepsis in this patient who did have fever elevated white count meeting criteria for SIRS, source is likely right-sided pyelonephritis and now with evidence of secondary bacteremia 2-E. coli bacteremia source is likely right-sided pyelonephritis 3-patient did have improvement in the fever pattern white count normalized 4patient to continue Rocephin 2 g daily while inpatient will transition to oral Cipro or Ceftin on discharge Dictation was produced using [employer] dictation software. please excuse any grammatical, word or spelling errors. Time with Patient: Less than 30
[2024-09-29] MEDS: ACETAMINOPHEN TAB 325 MG TAB PO PRN (20:37)
[2024-09-30] MEDS: IBUPROFEN 600 MG TAB PO STA (01:26)
[2024-09-30] MEDS: ACETAMINOPHEN TAB 325 MG TAB PO PRN (02:02)
[2024-09-30 08:45] LABS: Basophils # (A) 0.04 X 10*3/uL (0.00-0.10); Basophils % (A) 0.4 %; Eosinophils # (A) 0.04 X 10*3/uL (0.04-0.35); Eosinophils % (A) 0.4 %; HCT 30.2 % (37.2-46.3); HGB 9.6 g/dL (12.0-15.0); Lymphocytes # (A) 1.79 X 10*3/uL (0.90-5.00); Lymphocytes % (A) 19.1 %; MCH 28.2 pg (27.0-32.0); MCHC 31.8 g/dL (32.0-37.0); MCV 88.6 FL (80.0-97.0); Mean Platelet Volume 12.3 FL (9.5-12.2); Monocytes % (A) 13.9 %; NRBC Per 100 WBC 0 X 10*3/uL (0.00-0.01); Neutrophils # (A) 6.13 X 10*3/uL (1.80-7.70); Neutrophils % (A) 65.3 %; Platelet Count 187 X 10*3/uL (140-440); RBC 3.41 X 10*6/uL (4.10-5.20); RDW 15.4 % (11.5-14.5); WBC 9.38 X 10*3/uL (4.50-10.00)
[2024-09-30 09:09] LABS: ALT 53 U/L (8-44); AST 45 U/L (13-35); Albumin 3.1 g/dL (3.8-4.9); Albumin/Globulin Ratio 1.55 Ratio (1.60-3.17); Alkaline Phosphatase 122 U/L (41-126); Blood Urea Nitrogen 19.2 mg/dL (9.0-27.0); Calcium 8.4 mg/dL (8.7-10.3); Carbon Dioxide 22.5 mmol/L (21.6-31.8); Chloride 104 mmol/L (96-109); Glucose 122 mg/dL (70-110); Magnesium 1.5 mg/dL (1.5-2.4); Potassium 3.5 mmol/L (3.5-5.5); Sodium 137 mmol/L (135-145); Total Bilirubin <0.2 mg/dL (0.3-1.2); Total Protein 5.1 g/dL (6.2-8.2)
--- NOTE | 2024-09-30 09:13 | P.PN ---
Subjective Progress Note Date: 09/30/24 Yadira Schrader is a 79-year-old female patient of Dr. Phillips who presented with complaints of nausea vomiting and fever over the past few days.patient has a past medical history of breast cancer, GERD, hyperlipidemia, hypertension, osteoarthritis, anxiety and depression.chest x-ray completed showing no acute cardiopulmonary process.Interval change compared to previous. CT of abdomen and pelvis completed showing no significant abnormality seen. Lab work revealing WBC of 23.3, hemoglobin 13.3, sodium 134, potassium 3.0, bun 38, creatinine 1.30 lactic acid 1.0 AST 65 ALT 50. UA positive for urinary tract infection influenza RSV and COVID-19.vital signs showing temperature 101, heart rate 73, respiratory rate 18, blood pressure 147/66 with pulse ox 95% on room air this time patient will be admitted for UTI with sepsis. Preliminary blood culture positive. Patient started on IV Rocephin infectious disease service is consulted patient started on normal saline at 75 IV Tylenol for fever. This time patient is resting comfortably in bed family at bedside. Patient noted to have right flank pain. Patient reports some nausea. Patient denies chest pain or shortness of breath. Patient denies nausea vomiting or diarrhea. Patient denies urinary burning or frequency. On 09/28/2024 patient was seen and examined on the medical floor she is alert and oriented x 3 in no apparent distress there is no fever or chills no headache or dizziness no chest pain no shortness of breath no cough no nausea or vomiting no abdominal pain no diarrhea no urinary symptoms. Patient had positive blood culture for gram-negative bacilli, she remains on IV ceftriaxone, will continue to follow closely. On 09/29/2024 patient is alert and oriented x 3. Patient complaining about increased sinus congestion. Slight wheezing upon auscultation. At this time will order chest x-ray and DuoNeb breathing treatments patient maintained on IV Rocephin patient reports improvement with right flank pain. Infectious disease services are following white blood cell improving to 6.89. Patient has remained afebrile. Patient denies chest pain or shortness of breath. Patient denies nausea vomiting or diarrhea. Patient denies any urinary burning or frequency On 09/30/2024 patient is alert and oriented x 3. Patient had increased fever throughout the night. RSV COVID and flu was negative yesterday chest x-ray completed and negative. Patient remains on IV Rocephin. At this time will repeat blood culture. White blood cell has normalized to 9.38. Will discuss case with infectious disease services at this time patient states that her right flank pain has improved denies any further abdominal issues. Complaints of upper respiratory symptoms. Patient denies chest pain or shortness of breath. Patient denies nausea vomiting or diarrhea. Patient denies any urinary burning or frequency Objective - Vital Signs Vital signs: Vital Signs Temp 98.1 F 09/30/24 09:03 Pulse 76 09/30/24 09:03 Resp 17 09/30/24 09:03 BP 147/53 09/30/24 09:03 Pulse Ox 96 09/30/24 09:03 FiO2 Intake & Output 09/29/24 09/30/24 09/30/24 18:59 06:59 18:59 Intake Total 840 Output Total 225 Balance 840 -225 Intake: Oral 840 Output: Urine 225 Other: Voiding Method Bedside Commode Bedside Commode # Voids 3 # Bowel Movements 1 - Exam In general patient is alert and oriented x 3 in no distress Head normocephalic, and atraumatic Neck supple, no JVD no goiter Lungs clear to auscultation bilaterally no wheezing or crackles Heart regular rate and rhythm S1-S2, no rub or gallop Abdomen is soft nontender nondistended positive bowel sounds no hepatosplenomegaly. Right flank pain noted Extremities no edema Neuro no gross focal deficit - Labs CBC & Chem 7: 09/30/24 05:34 09/30/24 05:34 Labs: Abnormal Lab Results - Last 24 Hours (Table) 09/29/24 09/30/24 09/30/24 Range/Units 04:37 05:34 05:34 RBC 3.41 L (4.10-5.20) X 10*6/uL Hgb 9.6 L (12.0-15.0) g/dL Hct 30.2 L (37.2-46.3) % MCHC 31.8 L (32.0-37.0) g/dL RDW 15.4 H (11.5-14.5) % MPV 12.3 H (9.5-12.2) FL Immature Gran # 0.08 H (0.00-0.04) X 10*3/uL Monocytes # 1.30 H (0.20-1.00) X 10*3/uL Est GFR (CKD-EPI) 58 L 46 L (>=60) Glucose 122 H (70-110) mg/dL Calcium 8.6 L 8.4 L (8.7-10.3) mg/dL Total Bilirubin <0.2 L <0.2 L (0.3-1.2) mg/dL AST 44 H 45 H (13-35) U/L ALT 49 H 53 H (8-44) U/L Total Protein 5.3 L 5.1 L (6.2-8.2) g/dL Albumin 3.2 L 3.1 L (3.8-4.9) g/dL Albumin/Globulin Ratio 1.52 L 1.55 L (1.60-3.17) Ratio Microbiology - Last 24 Hours (Table) 09/26/24 12:43 Urine Culture - Final Urine,Voided Escherichia coli 09/26/24 13:58 Blood Culture Gram Stain - Final Blood Blood Culture - Final Escherichia coli Molecular ID Assessment and Plan Assessment: 1. UTI with sepsis as evidenced by fever and leukocytosis and Positive blood culture 2. Acute kidney injury secondary to sepsis and dehydration 3. Elevated liver enzymes. Continue to monitor 4. History of GERD 5. History of essential hypertension 6. History of hyperlipidemia 7. History of anxiety and depression DVT prophylaxis Lovenox. GI prophylaxis Protonix Patient started on IV antibiotic Continue normal saline Infectious disease service is consulted Urine and blood cultures ordered Repeat labs ordered
--- NOTE | 2024-09-30 11:07 | CT ---
EXAMINATION TYPE: CT abdomen pelvis wo con CT DLP: 978.9 mGycm, Automated exposure control for dose reduction was used. DATE OF EXAM: 09/30/2024 10:58 AM COMPARISON: CT abdomen pelvis 09/26/2024, PET/CT 02/06/2020 CLINICAL INDICATION:Female, 79 years old with history of fever; abdominal pain, fever TECHNIQUE: Standard CT of the abdomen and pelvis without IV or oral contrast. Lack of IV or oral co ntrast limits evaluation of solid and hollow organ viscera. Coronal and sagittal reformats were perfo rmed. FINDINGS: LOWER CHEST: Small left and trace right pleural effusions with associated atelectasis. Interlobular s eptal thickening of the bilateral lung bases. ABDOMEN LIVER: Unremarkable noncontrast appearance GALLBLADDER AND BILE DUCTS: The gallbladder is surgically absent. No biliary ductal dilatation. PANCREAS: Unremarkable noncontrast appearance SPLEEN: Unremarkable noncontrast appearance ADRENAL GLANDS: Unremarkable noncontrast appearance. KIDNEYS AND URETERS: No evidence of hydronephrosis or renal calculus. Mild bilateral perinephric fat stranding. PELVIS BLADDER: Grossly unremarkable within limitations of streak artifact from hip prosthesis. REPRODUCTIVE: Poorly visualized due to streak artifact and head prosthesis. ABDOMEN & PELVIS STOMACH AND BOWEL: Stomach and duodenum are unremarkable. Scattered distal colon diverticulosis witho ut evidence for acute diverticulitis. No evidence of bowel obstruction. PERITONEUM: No evidence of pneumoperitoneum or free fluid. VASCULATURE: Mild atherosclerotic calcifications are present throughout the abdominal aorta and its b ranches. No evidence of aortic aneurysm. MUSCULOSKELETAL: No acute osseous abnormalities. Multilevel degenerative disc disease appear most pro nounced at L5-S1. Mild dextrocurvature of the thoracolumbar spine. Sclerotic lesion involving the pos terior superior aspect of the L5 vertebral body measures 1.6 cm, previously measured 0.9 cm on 2019 P ET/CT. LYMPH NODES: No gross evidence for lymphadenopathy. SOFT TISSUE/ABDOMINAL WALL: Mild diffuse anasarca. IMPRESSION: 1. No evidence for acute abdominal/pelvic process within limitations of a noncontrast CT. 2. Small left and trace right pleural effusions with interlobular septal thickening and mild diffuse anasarca suggesting volume overload. 3. Colon diverticulosis without evidence for acute diverticulitis. 4. Increased size of single sclerotic lesion within the L5 vertebral body from prior PET/CT. Nonspeci fic and could represent a benign bone versus other etiologies. [facility], , 09/30/2024 11:05 AM
[2024-10-01 08:37] LABS: HCT 30.1 % (37.2-46.3); HGB 9.8 g/dL (12.0-15.0); MCH 28.8 pg (27.0-32.0); MCHC 32.6 g/dL (32.0-37.0); MCV 88.5 FL (80.0-97.0); Mean Platelet Volume 12.5 FL (9.5-12.2); NRBC Per 100 WBC 0 X 10*3/uL (0.00-0.01); Platelet Count 217 X 10*3/uL (140-440); RDW 15.5 % (11.5-14.5); WBC 9.46 X 10*3/uL (4.50-10.00)
[2024-10-01 08:38] LABS: Basophils # (A) 0.05 X 10*3/uL (0.00-0.10); Basophils % (A) 0.5 %; Eosinophils # (A) 0.22 X 10*3/uL (0.04-0.35); Eosinophils % (A) 2.3 %; Lymphocytes # (A) 1.75 X 10*3/uL (0.90-5.00); Lymphocytes % (A) 18.5 %; Monocytes # (A) 1.23 X 10*3/uL (0.20-1.00); Neutrophils % (A) 64.5 %
[2024-10-01 08:55] LABS: ALT 71 U/L (8-44); AST 65 U/L (13-35); Albumin 3.1 g/dL (3.8-4.9); Albumin/Globulin Ratio 1.35 Ratio (1.60-3.17); Alkaline Phosphatase 131 U/L (41-126); BUN/Creat Ratio 15.33 Ratio (12.00-20.00); Blood Urea Nitrogen 13.8 mg/dL (9.0-27.0); Calcium 8.8 mg/dL (8.7-10.3); Carbon Dioxide 24.9 mmol/L (21.6-31.8); Chloride 106 mmol/L (96-109); Globulin 2.3 g/dL (1.6-3.3); Glucose 89 mg/dL (70-110); Potassium 3.9 mmol/L (3.5-5.5); Sodium 141 mmol/L (135-145); Total Bilirubin 0.3 mg/dL (0.3-1.2); Total Protein 5.4 g/dL (6.2-8.2)
--- NOTE | 2024-10-01 09:05 | P.CNOR ---
History of Present Illness - [facility] Consult date: 10/01/24 Requesting physician: Tani Manriquez Consult reason: other (Sclerotic lesion) History of present illness: History of Presenting Illness Patient is a pleasant 79-year-old female who was sent in to the ER from her PCP, Dr. Phillips, with initial complaints of nausea, vomiting, fever over the past few days prior to admission. Patient does have a past medical history of breast cancer, GERD, hyperlipidemia, hypertension, osteoarthritis, chronic neck and back pain, anxiety, and depression. Our services were consulted due to results of her recent CT scan of the abdomen and pelvis without contrast taken on 09/30/2024, imaging demonstrates an increased size of a single sclerotic lesion within the L5 vertebral body. Patient does report chronic neck and back pain that she has had treatment from [facility]. She has a orthopedic history of C6-T1 decompression and fusion, bilateral total hip arthroplasty, and left knee arthroscopy. Patient seen and examined this morning. Patient is resting currently in bed. She was able to position herself at the side of the bed during assessment. She states she has chronic back pain that is managed at this time. She does report numbness and tingling to her lower extremities, although she states this is chronic in nature due to her cervical spine. She states she is not looking for any surgical interventions and is doing quite well. Patient denies any perineal numbness or tingling, bladder or bowel incontinence or retention. Patient is ambulatory with a walker and lives at home with her spouse. Review of Systems Pertinent positives and negatives as discussed in HPI, a complete review of systems was performed and all other systems are negative. Physical Examination General: The patient is awake and alert, in no acute distress Skin: Skin is warm and dry with no obvious rashes or lesions. Neck: The neck is supple, there is no tenderness and ROM intact. Cardiovascular: There is a regular rate and rhythm. Respiratory: Respirations are non-labored. Gastrointestinal: Soft, non-distended, non-tender abdomen. Back: There is no tenderness to palpation in the midline, paralumbar, parath oracic or buttocks region. There is a small round mass located at the right lateral thoracic region that may represent a lipoma. Musculoskeletal: FROM of all major muscle groups Right: shoulder abduction 5/5, elbow flexors 5/5, wrist dorsiflexors 5/5. finger abductor 5/5, mixing house operator 5/5, hip flexor 4/5, knee flexor 4/5, ankle dorsiflexor 5/5, ankle plantarflexion 5/5 and extensor hallucis 5/5. Left: shoulder abduction 5/5, elbow flexors 5/5, wrist dorsiflexors 5/5. finger abductor 5/5, mixing house operator 5/5, hip flexor 4/5, knee flexor 4/5, ankle dorsiflexor 5/5, ankle plantarflexion 5/5 and extensor hallucis 5/5. Neurological: CN 2-12 intact. There are no obvious motor or sensory deficits. Movement and coordination equal and intact. Sensory exam to light touch intact C5-T1 and intact from L2-S1. Reflexes 2/4 in bilateral upper and lower extremities. Negative Hoffmans, babinski, and clonus signs. Psychiatric: Cooperative, appropriate mood & affect, normal judgment. Assessment and Plan Chronic back pain BLE radiculopathy L5 vertebral body sclerotic lesion Multiple medical comorbidities At this time we do not recommend any emergent/urgent orthopedic surgical intervention. Patient may follow-up with Dr. Gill's office for further evaluation as needed. Orthopedics is signing off at this time. Please do not hesitate to contact us for any further questions. 2. Appreciate medical management 3. Pain management - Continue with current treatment, Utilize ice therapy 20min every hour as needed. 4. PT/OT - weightbearing as tolerated with a walker as needed. 5. Appreciate consult. I reviewed and discussed this case with my attending Dr. Gill, whom has reviewed this chart and films and is in agreement with assessment and plan of care as outlined above. I have personally seen and examined the patient, performed the documentation and the assessment and plan as written. Number of minutes spent on the visit: 20m. Past Medical History Past Medical History: Cancer, GERD/Reflux, Hyperlipidemia, Hypertension, Osteoarthritis (OA) Additional Past Medical History / Comment(s): fluid retention ankles & feet, rheumatic fever/rheumatic heart disease x3 as a child, valve disease/heart murmur, hx. R breast cancer 2011-radiation & surgery, L breast cancer 2021/ lumpectomy, pain & frequent numbness from small of back down legs-uses walker History of Any Multi-Drug Resistant Organisms: None Reported Past Surgical History: Breast Surgery, Hysterectomy, Joint Replacement, Orthopedic Surgery Additional Past Surgical History / Comment(s): lumpectomy right breast x2, L breast lumpectomy, surg. left knee to remove cartilage, partial thyroidectomy, TOTAL HIP REPLACEMENT LEFT AND RIGHT SIDE, bilateral cataract removal/lens implants. Past Anesthesia/Blood Transfusion Reactions: No Reported Reaction Past Psychological History: Anxiety, Depression Smoking Status: Former smoker Past Alcohol Use History: None Reported Past Drug Use History: None Reported - Past Family History Mother Son(s) Family Medical History: Cancer Daughter(s) Family Medical History: Cancer, Deep Vein Thrombosis (DVT) Additional Family Medical History / Comment(s): blood clot in arm, leukemia Medications and Allergies Home Medications Medication Instructions Recorded Confirmed Type Aspirin 81 mg PO DAILY 04/15/20 09/26/24 History Triamterene/Hydrochlorothiazid 1 tab PO DAILY 04/15/20 09/26/24 History [Triamterene-Hctz 75-50 mg Tab] Furosemide [Lasix] 40 mg PO DAILY PRN 01/29/24 09/26/24 History HYDROcodone/APAP 10-325MG [[place] 1 tab PO Q4H PRN 01/29/24 09/26/24 History 10-325] Lactulose [Constulose] 10 - 20 gm PO Q6H PRN 01/29/24 09/26/24 History allopurinoL 100 mg PO DAILY 01/29/24 09/26/24 History methocarbamoL 750 mg PO Q6H PRN 01/29/24 09/26/24 History Cholecalciferol [Vitamin D3 (25 25 mcg PO DAILY 09/26/24 09/26/24 History Mcg = 1000 Iu)] Escitalopram [Lexapro] 10 mg PO DAILY 09/26/24 09/26/24 History Furosemide [Lasix] 40 mg PO DAILY 09/26/24 09/26/24 History Letrozole 2.5 mg PO DAILY 09/26/24 09/26/24 History Magnesium 250 mg PO DAILY 09/26/24 09/26/24 History Potassium Chloride ER [K-Dur 20] 20 meq PO DAILY 09/26/24 09/26/24 History Allergies Allergy/AdvReac Type Severity Reaction Status Date / Time celecoxib [From Celebrex] Allergy Abdominal Verified 09/26/24 13:28 Pain ibuprofen [From Motrin] Allergy Abdominal Verified 09/26/24 13:28 Pain metoprolol Allergy Rash/Hives Verified 09/26/24 13:28 quinapril [From Accupril] Allergy Rash/Hives Verified 09/26/24 13:28 Spnwzil-LXH-CzS Reductase Allergy Abdominal Verified 09/26/24 13:28 Inhibitor Pain [Saxxtia-Skn-Ofg Reductase Inhibitor] adhesive tape AdvReac Rash/Hives Verified 09/26/24 13:28 Results - Labs Labs: Abnormal Lab Results - Last 24 Hours (Table) 09/30/24 09/30/24 Range/Units 05:34 05:34 RBC 3.41 L (4.10-5.20) X 10*6/uL Hgb 9.6 L (12.0-15.0) g/dL Hct 30.2 L (37.2-46.3) % MCHC 31.8 L (32.0-37.0) g/dL RDW 15.4 H (11.5-14.5) % MPV 12.3 H (9.5-12.2) FL Immature Gran # 0.08 H (0.00-0.04) X 10*3/uL Monocytes # 1.30 H (0.20-1.00) X 10*3/uL Est GFR (CKD-EPI) 46 L (>=60) Glucose 122 H (70-110) mg/dL Calcium 8.4 L (8.7-10.3) mg/dL Total Bilirubin <0.2 L (0.3-1.2) mg/dL AST 45 H (13-35) U/L ALT 53 H (8-44) U/L Total Protein 5.1 L (6.2-8.2) g/dL Albumin 3.1 L (3.8-4.9) g/dL Albumin/Globulin Ratio 1.55 L (1.60-3.17) Ratio H & H 09/26/24 09/27/24 09/28/24 Range/Units 12:36 12:45 04:15 Hgb 13.0 11.6 11.4 L (11.4-16.0) gm/dL Hct 40.3 36.4 35.8 L (34.0-46.0) % 09/29/24 09/30/24 Range/Units 04:37 05:34 Hgb 10.9 L 9.6 L (11.4-16.0) gm/dL Hct 33.7 L 30.2 L (34.0-46.0) % Result Diagrams: 10/01/24 05:07 09/30/24 05:34
[2024-10-01] MEDS: FUROSEMIDE 40 MG TAB PO SCH (11:22)
[2024-10-01] MEDS: CHOLECALCIFEROL 25 MCG (1000 IU) TABLET PO SCH (11:23)
[2024-10-01] MEDS: allopurinoL 100 MG TAB PO SCH (11:23)
--- NOTE | 2024-10-01 15:32 | US ---
EXAMINATION TYPE: US liver DATE OF EXAM: 10/01/2024 COMPARISON: CT 09/30/2024 CLINICAL INDICATION: Female, 79 years old with history of elevated liver enzymes; Elevated liver enzy mes, hx cholecystectomy. TECHNIQUE: Grayscale and color Doppler imaging of the right upper quadrant. FINDINGS: EXAM MEASUREMENTS: Liver Length: 18.2 cm Gallbladder Wall: 0.69 cm CBD: 0.69 cm, color Doppler imaging was utilized to isolate the common bile duct for measurement. Right Kidney: 10.4 x 4.9 x 4.5 cm PATHOLOGY MANAGER NOTES: Limited due to gas. Pancreas: Obscured Liver: *Enlarged, appears slightly coarse in echotexture. *2 hyperechoic foci seen within the liver, #1 = 0.3 x 0.3 x 0.3 cm. #2 = 0.3 x 0.4 x 0.4 cm. Gallbladder: Surgically absent Evidence for sonographic Best's sign: No CBD: Appears wnl Right Kidney: *Hypoechoic area seen lower pole= 1.1 x 1.1 x 0.7 cm. -Hyperechoic area seen upper pole = 1.3 x 0.9 x 1.2 cm. -Tiny hyperechoic focus seen upper pole = 0.4 x 0.3 x 0.3 cm. IMPRESSION: 1. Hepatocellular disease no dilated ducts. Hyperechoic focus is indeterminant no finding visualized on CT 09/30/2024. 2. No evidence for obstructive uropathy. Right renal probable cysts and/or lobulated indentation of fat and same day CT findings. [facility], , 10/01/2024 3:30 PM
--- NOTE | 2024-10-01 17:34 | P.PN ---
Subjective Progress Note Date: 10/01/24 Yadira Schrader is a 79-year-old female patient of Dr. Phillips who presented with complaints of nausea vomiting and fever over the past few days.patient has a past medical history of breast cancer, GERD, hyperlipidemia, hypertension, osteoarthritis, anxiety and depression.chest x-ray completed showing no acute cardiopulmonary process.Interval change compared to previous. CT of abdomen and pelvis completed showing no significant abnormality seen. Lab work revealing WBC of 23.3, hemoglobin 13.3, sodium 134, potassium 3.0, bun 38, creatinine 1.30 lactic acid 1.0 AST 65 ALT 50. UA positive for urinary tract infection influenza RSV and COVID-19.vital signs showing temperature 101, heart rate 73, respiratory rate 18, blood pressure 147/66 with pulse ox 95% on room air this time patient will be admitted for UTI with sepsis. Preliminary blood culture positive. Patient started on IV Rocephin infectious disease service is consulted patient started on normal saline at 75 IV Tylenol for fever. This time patient is resting comfortably in bed family at bedside. Patient noted to have right flank pain. Patient reports some nausea. Patient denies chest pain or shortness of breath. Patient denies nausea vomiting or diarrhea. Patient denies urinary burning or frequency. On 09/28/2024 patient was seen and examined on the medical floor she is alert and oriented x 3 in no apparent distress there is no fever or chills no headache or dizziness no chest pain no shortness of breath no cough no nausea or vomiting no abdominal pain no diarrhea no urinary symptoms. Patient had positive blood culture for gram-negative bacilli, she remains on IV ceftriaxone, will continue to follow closely. On 09/29/2024 patient is alert and oriented x 3. Patient complaining about increased sinus congestion. Slight wheezing upon auscultation. At this time will order chest x-ray and DuoNeb breathing treatments patient maintained on IV Rocephin patient reports improvement with right flank pain. Infectious disease services are following white blood cell improving to 6.89. Patient has remained afebrile. Patient denies chest pain or shortness of breath. Patient denies nausea vomiting or diarrhea. Patient denies any urinary burning or frequency On 09/30/2024 patient is alert and oriented x 3. Patient had increased fever throughout the night. RSV COVID and flu was negative yesterday chest x-ray completed and negative. Patient remains on IV Rocephin. At this time will repeat blood culture. White blood cell has normalized to 9.38. Will discuss case with infectious disease services at this time patient states that her right flank pain has improved denies any further abdominal issues. Complaints of upper respiratory symptoms. Patient denies chest pain or shortness of breath. Patient denies nausea vomiting or diarrhea. Patient denies any urinary burning or frequency. On 10/01/2024 patient was seen and examined on the medical floor, he is alert and oriented x 3 in no apparent distress, there was no new episodes of elevated temperature in the last 24 hours, patient denies any symptoms at this time there is no fever or chills no headache or dizziness no chest pain no shortness of breath no cough no nausea or vomiting no abdominal pain no diarrhea and no urinary symptoms. Patient had elevated liver enzymes, CT scan of the abdomen and liver ultrasound did not reveal any significant abnormality. Urine culture and blood culture on 09/26/2024 were positive for E. coli, repeat blood culture on 09/30/2024 is is negative so far Will continue to follow if stable possible discharge to home tomorrow on oral Ceftin. Objective - Vital Signs Vital signs: Vital Signs Temp 98 F 10/01/24 07:33 Pulse 68 10/01/24 07:47 Resp 16 10/01/24 07:47 BP 170/76 10/01/24 07:33 Pulse Ox 94 L 10/01/24 07:33 FiO2 Intake & Output 09/30/24 10/01/24 10/01/24 18:59 06:59 18:59 Intake Total 1080 Balance 1080 Intake: Oral 1080 Other: Voiding Method Bedside Commode Bedside Commode - Exam In general patient is alert and oriented x 3 in no distress Head normocephalic, and atraumatic Neck supple, no JVD no goiter Lungs clear to auscultation bilaterally no wheezing or crackles Heart regular rate and rhythm S1-S2, no rub or gallop Abdomen is soft nontender nondistended positive bowel sounds no hepatosplenomegaly. Right flank pain noted Extremities no edema Neuro no gross focal deficit - Labs CBC & Chem 7: 10/01/24 05:07 10/01/24 05:07 Labs: Abnormal Lab Results - Last 24 Hours (Table) 11/14/24 11/14/24 Range/Units 05:07 05:07 RBC 3.40 L (4.10-5.20) X 10*6/uL Hgb 9.8 L (12.0-15.0) g/dL Hct 30.1 L (37.2-46.3) % RDW 15.5 H (11.5-14.5) % MPV 12.5 H (9.5-12.2) FL Immature Gran # 0.11 H (0.00-0.04) X 10*3/uL Monocytes # 1.23 H (0.20-1.00) X 10*3/uL AST 65 H (13-35) U/L ALT 71 H (8-44) U/L Alkaline Phosphatase 131 H (41-126) U/L Total Protein 5.4 L (6.2-8.2) g/dL Albumin 3.1 L (3.8-4.9) g/dL Albumin/Globulin Ratio 1.35 L (1.60-3.17) Ratio Assessment and Plan Assessment: 1. UTI with sepsis as evidenced by fever and leukocytosis and Positive blood culture 2. Acute kidney injury secondary to sepsis and dehydration 3. Elevated liver enzymes. Continue to monitor 4. History of GERD 5. History of essential hypertension 6. History of hyperlipidemia 7. History of anxiety and depression DVT prophylaxis Lovenox. GI prophylaxis Protonix Patient started on IV antibiotic Continue normal saline Infectious disease service is consulted Urine and blood cultures ordered Repeat labs ordered
--- NOTE | 2024-10-01 23:04 | P.PN ---
Subjective Progress Note Date: 09/30/24 Principal diagnosis: Reason for follow-up is UTI and bacteremia Patient is a 79-year-old female with a past medical history of kidney for reflux hypertension hyperlipidemia osteoarthritis right breast cancer patient was brought into the hospital concerning for fever nausea vomiting and abdominal pain patient has been diagnosed with right-sided pyonephritis with bacteremia CT was negative for any stress abnormality. On today's evaluation that is 09/30/2024, the patient did spike a fever of 101 degrees following hide last night and 2 AM, the patient has been afebrile since then, the patient is on room air and breathing comfortably, the Pt denies having any chest pain or cough, the patient denies having any abdominal pain no vomiting or any diarrhea. Patient white count is 9.38 creatinine is 1.2 patient did have repeat CT abdominal pelvis did not show any intra-abdominal pathology Objective - Vital Signs Vital signs: Vital Signs Temp 98.1 F 09/30/24 09:03 Pulse 76 09/30/24 09:03 Resp 17 09/30/24 09:03 BP 147/53 09/30/24 09:03 Pulse Ox 96 09/30/24 09:03 FiO2 Intake & Output 09/29/24 09/30/24 09/30/24 18:59 06:59 18:59 Intake Total 840 Output Total 225 Balance 840 -225 Intake: Oral 840 Output: Urine 225 Other: Voiding Method Bedside Commode Bedside Commode # Voids 3 # Bowel Movements 1 - Exam GENERAL DESCRIPTION: An elderly female lying in bed in no distress RESPIRATORY SYSTEM: Unlabored breathing , decreased breath sounds at bases HEART: S1 S2 regular rate and rhythm , ABDOMEN: Soft , no tenderness EXTREMITIES: No edema feet - Labs CBC & Chem 7: 10/01/24 05:07 10/01/24 05:07 Labs: Abnormal Lab Results - Last 24 Hours (Table) 09/30/24 09/30/24 Range/Units 05:34 05:34 RBC 3.41 L (4.10-5.20) X 10*6/uL Hgb 9.6 L (12.0-15.0) g/dL Hct 30.2 L (37.2-46.3) % MCHC 31.8 L (32.0-37.0) g/dL RDW 15.4 H (11.5-14.5) % MPV 12.3 H (9.5-12.2) FL Immature Gran # 0.08 H (0.00-0.04) X 10*3/uL Monocytes # 1.30 H (0.20-1.00) X 10*3/uL Est GFR (CKD-EPI) 46 L (>=60) Glucose 122 H (70-110) mg/dL Calcium 8.4 L (8.7-10.3) mg/dL Total Bilirubin <0.2 L (0.3-1.2) mg/dL AST 45 H (13-35) U/L ALT 53 H (8-44) U/L Total Protein 5.1 L (6.2-8.2) g/dL Albumin 3.1 L (3.8-4.9) g/dL Albumin/Globulin Ratio 1.55 L (1.60-3.17) Ratio Microbiology - Last 24 Hours (Table) 09/26/24 12:43 Urine Culture - Final Urine,Voided Escherichia coli 09/26/24 13:58 Blood Culture Gram Stain - Final Blood Blood Culture - Final Escherichia coli Molecular ID Assessment and Plan (1) Sepsis Current Visit: Yes Status: Acute Code(s): A41.9 - SEPSIS, UNSPECIFIED ORGANISM SNOMED Code(s): 55989696 (2) Gram-negative bacteremia Current Visit: Yes Status: Acute Code(s): R78.81 - BACTEREMIA SNOMED Code(s): 563101356055 (3) Leukocytosis Current Visit: Yes Status: Acute Code(s): D72.829 - ELEVATED WHITE BLOOD CELL COUNT, UNSPECIFIED SNOMED Code(s): 068684286 (4) UTI (urinary tract infection) Current Visit: Yes Status: Acute Code(s): N39.0 - URINARY TRACT INFECTION, SITE NOT SPECIFIED SNOMED Code(s): 21922446 Plan: 1patient presented to hospital with sepsis in this patient who did have fever elevated white count meeting criteria for SIRS, source is likely right-sided pyelonephritis and now with evidence of secondary bacteremia 2-E. coli bacteremia source is likely right-sided pyelonephritis 3-patient did have new fever for the patient did have blood cultures repeated, CT abdominal pelvis reviewed did not show any evidence of renal or intra- abdominal abscess 4-we will continue patient on Rocephin while waiting for repeat culture to finalize Dictation was produced using [employer] dictation software. please excuse any grammatical, word or spelling errors. Time with Patient: Less than 30
--- NOTE | 2024-10-01 23:05 | P.PN ---
Subjective Progress Note Date: 10/01/24 Principal diagnosis: Reason for follow-up is UTI and bacteremia Patient is a 79-year-old female with a past medical history of kidney for reflux hypertension hyperlipidemia osteoarthritis right breast cancer patient was brought into the hospital concerning for fever nausea vomiting and abdominal pain patient has been diagnosed with right-sided pyonephritis with bacteremia CT was negative for any stress abnormality. On today's evaluation that is 10/01/2024, Patient did have resolution of her fever and is afebrile today, patient is currently on room air and denies having any shortness of breath, the patient denies any chest pain or cough, the patient denies any nausea vomiting did not have any abdominal pain and no diarrhea. Patient white count is 9.46 creatinine is 0.9 Objective - Vital Signs Vital signs: Vital Signs Temp 98 F 10/01/24 07:33 Pulse 68 10/01/24 07:47 Resp 16 10/01/24 07:47 BP 170/76 10/01/24 07:33 Pulse Ox 94 L 10/01/24 07:33 FiO2 Intake & Output 09/30/24 10/01/24 10/01/24 18:59 06:59 18:59 Intake Total 1080 Balance 1080 Intake: Oral 1080 Other: Voiding Method Bedside Commode Bedside Commode - Exam GENERAL DESCRIPTION: An elderly female lying in bed in no distress RESPIRATORY SYSTEM: Unlabored breathing , decreased breath sounds at bases HEART: S1 S2 regular rate and rhythm , ABDOMEN: Soft , no tenderness EXTREMITIES: No edema feet - Labs CBC & Chem 7: 10/01/24 05:07 10/01/24 05:07 Labs: Abnormal Lab Results - Last 24 Hours (Table) 10/01/24 10/01/24 Range/Units 05:07 05:07 RBC 3.40 L (4.10-5.20) X 10*6/uL Hgb 9.8 L (12.0-15.0) g/dL Hct 30.1 L (37.2-46.3) % RDW 15.5 H (11.5-14.5) % MPV 12.5 H (9.5-12.2) FL Immature Gran # 0.11 H (0.00-0.04) X 10*3/uL Monocytes # 1.23 H (0.20-1.00) X 10*3/uL AST 65 H (13-35) U/L ALT 71 H (8-44) U/L Alkaline Phosphatase 131 H (41-126) U/L Total Protein 5.4 L (6.2-8.2) g/dL Albumin 3.1 L (3.8-4.9) g/dL Albumin/Globulin Ratio 1.35 L (1.60-3.17) Ratio Assessment and Plan (1) Sepsis Current Visit: Yes Status: Acute Code(s): A41.9 - SEPSIS, UNSPECIFIED OR GANISM SNOMED Code(s): 32933515 (2) Gram-negative bacteremia Current Visit: Yes Status: Acute Code(s): R78.81 - BACTEREMIA SNOMED Code(s): 306308871351 (3) Leukocytosis Current Visit: Yes Status: Acute Code(s): D72.829 - ELEVATED WHITE BLOOD CELL COUNT, UNSPECIFIED SNOMED Code(s): 841490494 (4) UTI (urinary tract infection) Current Visit: Yes Status: Acute Code(s): N39.0 - URINARY TRACT INFECTION, SITE NOT SPECIFIED SNOMED Code(s): 78411609 Plan: 1patient presented to hospital with sepsis in this patient who did have fever elevated white count meeting criteria for SIRS, source is likely right-sided pyelonephritis and now with evidence of secondary bacteremia 2-E. coli bacteremia source is likely right-sided pyelonephritis 3-patient did have new fever for the patient did have blood cultures repeated, CT abdominal pelvis reviewed did not show any evidence of renal or intra- abdominal abscess 4-patient to continue Rocephin while inpatient plan is to finish therapy with oral Ceftin 500 mg twice daily for 10 days on discharge Dictation was produced using [employer]. please excuse any grammatical, word or spelling errors. Time with Patient: Less than 30
[2024-10-02 02:46] VITALS: RESP 18
[2024-10-02 07:35] VITALS: BP 178/80; PULSE 69; TEMP 98.1
--- NOTE | 2024-10-02 08:52 | P.DS ---
Providers Date of admission: 09/26/24 14:05 Expected date of discharge: 10/02/24 Attending physician: Tani Manriquez Consults: 09/27/24 09:15 Consult Physician Routine Consulting Provider: Yong Evans Consult Reason/Comments: positive blood culture Do you want consulting provider notified?: Yes 09/30/24 17:49 Consult Physician Routine Consulting Provider: Rj Gill Consult Reason/Comments: sclerotic lesion Do you want consulting provider notified?: Yes Primary care physician: Melvina Phillips Hospital Course: Discharge diagnosis 1. UTI with sepsis as evidenced by fever and leukocytosis and Positive blood culture 2. Acute kidney injury secondary to sepsis and dehydration 3. Elevated liver enzymes. Continue to monitor 4. History of GERD 5. History of essential hypertension 6. History of hyperlipidemia 7. History of anxiety and depression Hospital course Yadira Schrader is a 79-year-old female patient of Dr. Phillips who presented with complaints of nausea vomiting and fever over the past few days.patient has a past medical history of breast cancer, GERD, hyperlipidemia, hypertension, osteoarthritis, anxiety and depression.chest x-ray completed showing no acute cardiopulmonary process.Interval change compared to previous. CT of abdomen and pelvis completed showing no significant abnormality seen. Lab work revealing WBC of 23.3, hemoglobin 13.3, sodium 134, potassium 3.0, bun 38, creatinine 1.30 lactic acid 1.0 AST 65 ALT 50. UA positive for urinary tract infection influenza RSV and COVID-19.vital signs showing temperature 101, heart rate 73, respiratory rate 18, blood pressure 147/66 with pulse ox 95% on room air this time patient will be admitted for UTI with sepsis. Preliminary blood culture positive. Patient started on IV Rocephin infectious disease service is consulted patient started on normal saline at 75 IV Tylenol for fever. This time patient is resting comfortably in bed family at bedside. Patient noted to have right flank pain. Patient reports some nausea. Patient denies chest pain or shortness of breath. Patient denies nausea vomiting or diarrhea. Patient denies urinary burning or frequency. On 09/28/2024 patient was seen and examined on the medical floor she is alert and oriented x 3 in no apparent distress there is no fever or chills no headache or dizziness no chest pain no shortness of breath no cough no nausea or vomiting no abdominal pain no diarrhea no urinary symptoms. Patient had positive blood culture for gram-negative bacilli, she remains on IV ceftriaxone, will continue to follow closely. On 09/29/2024 patient is alert and oriented x 3. Patient complaining about increased sinus congestion. Slight wheezing upon auscultation. At this time will order chest x-ray and DuoNeb breathing treatments patient maintained on IV Rocephin patient reports improvement with right flank pain. Infectious disease services are following white blood cell improving to 6.89. Patient has remained afebrile. Patient denies chest pain or shortness of breath. Patient denies nausea vomiting or diarrhea. Patient denies any urinary burning or frequency On 09/30/2024 patient is alert and oriented x 3. Patient had increased fever throughout the night. RSV COVID and flu was negative yesterday chest x-ray completed and negative. Patient remains on IV Rocephin. At this time will repeat blood culture. White blood cell has normalized to 9.38. Will discuss case with infectious disease services at this time patient states that her right flank pain has improved denies any further abdominal issues. Complaints of upper respiratory symptoms. Patient denies chest pain or shortness of breath. Patient denies nausea vomiting or diarrhea. Patient denies any urinary burning or frequency. On 10/01/2024 patient was seen and examined on the medical floor, he is alert and oriented x 3 in no apparent distress, there was no new episodes of elevated temperature in the last 24 hours, patient denies any symptoms at this time there is no fever or chills no headache or dizziness no chest pain no shortness of breath no cough no nausea or vomiting no abdominal pain no diarrhea and no urinary symptoms. Patient had elevated liver enzymes, CT scan of the abdomen and liver ultrasound did not reveal any significant abnormality. Urine culture and blood culture on 09/26/2024 were positive for E. coli, repeat blood culture on 09/30/2024 is is negative so far Will continue to follow if stable possible discharge to home tomorrow on oral Ceftin. On 10/02/2024 patient is alert and oriented x 3. Patient feels much improved. Patient continues to be afebrile. Patient denies chest pain or shortness of breath. Patient denies nausea vomiting or diarrhea. Patient denies any urinary burning or frequency. Per ID discharge patient on Ceftin 500 twice daily for 10 days patient to follow-up with PCP and consulting providers for further management Patient Condition at Discharge: Stable Plan - Discharge Summary New Discharge Prescriptions: New cefuroxime axetiL [Ceftin] 500 mg PO BID 10 Days #20 tab Continue Aspirin 81 mg PO DAILY Triamterene/Hydrochlorothiazid [Triamterene-Hctz 75-50 mg Tab] 1 tab PO DAILY methocarbamoL 750 mg PO Q6H PRN PRN Reason: restless legs allopurinoL 100 mg PO DAILY Furosemide [Lasix] 40 mg PO DAILY Escitalopram [Lexapro] 10 mg PO DAILY Cholecalciferol [Vitamin D3 (25 Mcg = 1000 Iu)] 25 mcg PO DAILY Furosemide [Lasix] 40 mg PO DAILY PRN PRN Reason: Edema HYDROcodone/APAP 10-325MG [[place] 10-325] 1 tab PO Q4H PRN PRN Reason: Pain Lactulose [Constulose] 10 - 20 gm PO Q6H PRN PRN Reason: Constipation Potassium Chloride ER [K-Dur 20] 20 meq PO DAILY Letrozole 2.5 mg PO DAILY Magnesium 250 mg PO DAILY Discharge Medication List Aspirin 81 mg PO DAILY 04/15/20 [History] Triamterene/Hydrochlorothiazid [Triamterene-Hctz 75-50 mg Tab] 1 tab PO DAILY 04/15/20 [History] Furosemide [Lasix] 40 mg PO DAILY PRN 01/29/24 [History] HYDROcodone/APAP 10-325MG [[place] 10-325] 1 tab PO Q4H PRN 01/29/24 [History] Lactulose [Constulose] 10 - 20 gm PO Q6H PRN 01/29/24 [History] allopurinoL 100 mg PO DAILY 01/29/24 [History] methocarbamoL 750 mg PO Q6H PRN 01/29/24 [History] Cholecalciferol [Vitamin D3 (25 Mcg = 1000 Iu)] 25 mcg PO DAILY 09/26/24 [History] Escitalopram [Lexapro] 10 mg PO DAILY 09/26/24 [History] Furosemide [Lasix] 40 mg PO DAILY 09/26/24 [History] Letrozole 2.5 mg PO DAILY 09/26/24 [History] Magnesium 250 mg PO DAILY 09/26/24 [History] Potassium Chloride ER [K-Dur 20] 20 meq PO DAILY 09/26/24 [History] cefuroxime axetiL [Ceftin] 500 mg PO BID 10 Days #20 tab 10/02/24 [Rx] Follow up Appointment(s)/Referral(s): Nursing,[facility] [NON-STAFF] - As Needed Melvina Phillips MD [Primary Care Provider] - 1-2 days Aging,[place] [NON-STAFF] - As Needed (Please call for in home housekeeping and transportation.) Rj Gill, [Doctor of Osteopathic Medicine] - As Needed Discharge/Stand Alone Forms: Who Do I Call?, Help In The Home Discharge Disposition: HOME WITH HOME HEALTH SERVICES
== END 2024-10-02 10:23 | disposition home health service (06) | DRG 872 ==
LOC: EC 09:39 → 5NMEDONC 14:05
PROVIDERS: ADMIT Internal Medicine; ATTEND Internal Medicine
DX: A41.9 Sepsis, unspecified organism (principal); N17.9 Acute kidney failure, unspecified; N39.0 Urinary tract infection, site not specified; R65.20 Severe sepsis without septic shock; I10 Essential (primary) hypertension; F32.A Depression, unspecified; E86.0 Dehydration; E87.6 Hypokalemia; R09.02 Hypoxemia; E78.5 Hyperlipidemia, unspecified; F41.9 Anxiety disorder, unspecified; G89.29 Other chronic pain; R74.8 Abnormal levels of other serum enzymes; B96.89 Other specified bacterial agents as the cause of diseases classified elsewhere; Z96.1 Presence of intraocular lens; Z96.643 Presence of artificial hip joint, bilateral; Z86.79 Personal history of other diseases of the circulatory system; Z79.811 Long term (current) use of aromatase inhibitors; Z79.82 Long term (current) use of aspirin; Z79.899 Other long term (current) drug therapy; Z87.891 Personal history of nicotine dependence; Z90.49 Acquired absence of other specified parts of digestive tract; Z90.710 Acquired absence of both cervix and uterus; Z88.6 Allergy status to analgesic agent; Z88.8 Allergy status to other drugs, medicaments and biological substances; Z80.6 Family history of leukemia
CPT/HCPCS: 36415; 71046; 74176; 74177; 76705; 80053; 81001; 82150; 83605; 83690; 83735; 84132; 85025; 87040; 87077; 87086; 87186; 87502; 87635; 87636; 94640; 96361; 96365; 96375; 99285

== ENCOUNTER → 2025-06-18 | Outpatient (CLI) | payer MEDICARE ==
--- NOTE | 2025-06-18 21:15 | MR ---
EXAMINATION TYPE: MR lumbar spine wo/w con DATE OF EXAM: 06/18/2025 8:46 PM COMPARISON: None. CLINICAL INDICATION: Female, 79 years old with history of G89.29 CHRON PAIN M48.062 L SPINAL STENOSIS M15.0, trouble walking, low back pain that radiates down both legs, bilateral leg numbness TECHNIQUE: Multiplanar, multisequence images of the lumbar spine were acquired. IV Contrast: 8.5 mL Gadobutrol (None, if empty) FINDINGS: Cord ends at the L1 level L5-S1: There is narrowing of the disc height. No focal disc herniation is evident. Facet hypertrophy is present. Moderate bilateral foraminal narrowing is present. There is a sclerotic area within the p osterior superior L5 vertebral body. No cortical destruction is identified. L4-L5: No focal disc herniation or significant disc bulge. Facet hypertrophy is present greater on th e left. Mild posterior lateral thecal sac compression is present bilaterally. Neural foramen are browning nt. L3-L4: No focal disc herniation or significant disc bulge. No spinal canal stenosis. Neural foramen are patent. Facet hypertrophy is present L2-L3: No focal disc herniation or significant disc bulge. No spinal canal stenosis. Neural foramen are patent. Facet hypertrophy is present with mild posterior lateral thecal sac compression. L1-L2: No focal disc herniation or significant disc bulge. No spinal canal stenosis. Neural foramen are patent. T12-L1: No focal disc herniation or significant disc bulge. No spinal canal stenosis. Neural forame n are patent. IMPRESSION: 1. Multilevel facet hypertrophy with some mild posterior lateral thecal sac compression discussed abo ve. Largest facet left L4 level. 2. There is some moderate bilateral foraminal stenosis L5-S1 [facility], Workstation: [facility], 06/18/2025 9:13 PM
== END | disposition home or self-care (01) ==
LOC: RADMRIMAIN 20:00
PROVIDERS: ATTEND Family Medicine
DX: M47.816 Spondylosis without myelopathy or radiculopathy, lumbar region (principal); M48.062 Spinal stenosis, lumbar region with neurogenic claudication; M15.0 Primary generalized (osteo)arthritis; G89.29 Other chronic pain; M48.07 Spinal stenosis, lumbosacral region
CPT/HCPCS: 72158; A9585